=== PATIENT | male | born 1945 | race African-American/Black ===

== ENCOUNTER 2017-01-27 07:26 | Inpatient (IN) ==
[2017-01-27] MEDS ORDERED: ONDANSETRON 4 MG/2 ML VIAL IV STA ×2 (07:46→10:47)
[2017-01-27] MEDS ORDERED: SODIUM CHLORIDE 0.9% 1,000 ML IV STA ×2 (07:46→10:48)
[2017-01-27] MEDS ORDERED: METOCLOPRAMIDE 10 MG/2 ML VIAL IV STA (07:46)
[2017-01-27] MEDS ORDERED: METOCLOPRAMIDE 10 MG/2 ML VIAL ONE (08:29)
[2017-01-27] MEDS ORDERED: ONDANSETRON 4 MG/2 ML VIAL ONE ×2 (08:29→11:03)
[2017-01-27 09:26] LABS: Basophils % 0.2 % (0.0-0.8); Hematocrit 39.3 VOL% (42.0-52.0); Hemoglobin 13.4 GM/DL (14.0-18.0); Immature Granulocytes % 0.4 %; Immature Granulocytes Absolute 0.05 #; Lymphocytes # 0.3 10*3/uL (1.4-4.0); Mean Corpuscular HGB Conc 34.1 GM/DL (32-36); Mean Corpuscular Hemoglobin 31 PG (27-34); Mean Corpuscular Volume 90.8 FL (87-102); Mean Platelet Volume 13.2 FL (9.6-12.0); Monocytes # 0.5 10*3/uL (0.11-0.8); Monocytes % 3.7 % (1.7-12.7); NRBC # 0.02 10*3/uL; Neutrophils # 11.7 10*3/uL (1.4-7.4); Neutrophils % 93.7 % (38.7-73.9); Platelet Count 215 T/CUMM (130-400); Red Blood Count 4.33 MC/CUMM (3.8-5.5); Red Cell Distribution Width 17.2 % (9.3-17.3); White Blood Count 12.5 T/CUMM (4-12)
[2017-01-27 09:34] LABS: PT Patient Result 10.7 SECS; Partial Thromboplastin Time 23.3 SECS (0-40)
[2017-01-27 09:56] LABS: Band Neutrophils 2 % (0-10); Giant Platelets Few; Hypochromasia 1+; Lymphocytes 1 % (20-55); Ovalocytes Slight; Platelet Estimate Adequate; Segmented Neutrophils 94 % (50-85); Total Cells Counted 100
[2017-01-27 09:59] LABS: Albumin 3.9 G/DL (3.4-5.0); Bilirubin,Total 0.6 MG/DL (0.2-1.0); Calcium 8.9 MG/DL (8.5-10.1); Osmolality,Calculated 286.8 MOS/KG (273-304); Potassium 3.4 MMOL/L (3.5-5.1); Total Protein 7.6 G/DL (6.4-8.3)
[2017-01-27] MEDS ORDERED: HYDROmorphone 2 MG/1 ML VIAL IV STA (10:47)
[2017-01-27] MEDS ORDERED: hydrALAZINE 20 MG/1 ML VIAL IV STA (10:48)
[2017-01-27] MEDS ORDERED: HYDROmorphone 2 MG/1 ML VIAL ONE (11:03)
[2017-01-27 11:43] LABS: Apearance,Urine Slightly Hazy (Clear); Bilirubin,Urine Negative (Negative); Blood, Urine Negative (Negative); Glucose,Urine (UA) 150 mg/dL (Negative); Hyaline Casts,Urine 2 /LPF (0-3); Ketones,Urine 5 mg/dL (Negative); Mucus,Urine Occasional /LPF (Occasional); Nitrite,Urine Negative (Negative); Protein,Urine Negative; RBC,Urine <1 /HPF (0-4); Squamous Epithelial Cell,Urine Occasional /HPF (0-10); Urine Color Yellow (Yellow); Urine Specific Gravity 1.029 (1.001-1.035); Urine Urobilinogen < 2.0 EU/DL (0.2-1.0); WBC,Urine <1 /HPF (0-6)
[2017-01-27] MEDS ORDERED: BENZOCAINE/BUTAMBEN/TETRACAINE SPRAY 20 GM CAN TOP ONE (12:32)
[2017-01-27] MEDS ORDERED: GLUCAGON 1 MG VIAL IM PRN (15:56)
[2017-01-27] MEDS ORDERED: ONDANSETRON 4 MG/2 ML VIAL IV PRN (15:56)
[2017-01-27] MEDS ORDERED: DEXTROSE 50% 25 GM/50 ML VIAL IV PRN (15:56)
[2017-01-27] MEDS ORDERED: PROMETHAZINE 25 MG/1 ML VIAL IM PRN (15:56)
[2017-01-27] MEDS: PROPOFOL 1,000 MG/100 ML BOTTLE IV SCH (16:15)
[2017-01-27 16:17] LABS: ABG Base Excess -4.1 MMOL/L (-2.5-2.5); ABG HCO3 21.2 MMOL/L (20-26); ABG Oxygen Saturation 99.3 % (95-100); ABG PCO2 39.3 MM HG (35-48); ABG PH 7.349 (7.35-7.45); ABG TCO2 22.4 MMOL/L (23-27)
[2017-01-27 16:18] LABS: ABG PO2 565.8 MM HG (80-95)
[2017-01-27 16:19] LABS: Basophils % 0.1 % (0.0-0.8); Hematocrit 32.9 VOL% (42.0-52.0); Hemoglobin 11.3 GM/DL (14.0-18.0); Immature Granulocytes % 0.6 %; Immature Granulocytes Absolute 0.05 #; Lymphocytes # 0.3 10*3/uL (1.4-4.0); Mean Corpuscular HGB Conc 34.3 GM/DL (32-36); Mean Corpuscular Hemoglobin 31 PG (27-34); Mean Corpuscular Volume 90.1 FL (87-102); Mean Platelet Volume 12.8 FL (9.6-12.0); Monocytes # 0.4 10*3/uL (0.11-0.8); Monocytes % 4.9 % (1.7-12.7); NRBC # 0.02 10*3/uL; Neutrophils % 90.4 % (38.7-73.9); Platelet Count 175 T/CUMM (130-400); Red Blood Count 3.65 MC/CUMM (3.8-5.5); Red Cell Distribution Width 17.5 % (9.3-17.3); White Blood Count 7.8 T/CUMM (4-12)
[2017-01-27] MEDS ORDERED: HEPARIN/NACL 0.9% 2 UNITS/ML 500 ML IV ONE ×2 (16:32→16:47)
[2017-01-27 16:36] LABS: Calcium 7.3 MG/DL (8.5-10.1); Osmolality,Calculated 290.3 MOS/KG (273-304); Potassium 3.9 MMOL/L (3.5-5.1)
[2017-01-27] MEDS ORDERED: fentaNYL 100 MCG/2 ML VIAL ONE (16:46)
[2017-01-27] MEDS ORDERED: LACTATED RINGERS 1,000 ML IV ONE ×3 (16:46→20:01)
[2017-01-27] MEDS ORDERED: ROCURONIUM 100 MG/10 ML VIAL IV ONE (16:46)
[2017-01-27] MEDS ORDERED: SUCCINYLCHOLINE 200 MG/10 ML VIAL ONE (16:46)
[2017-01-27] MEDS ORDERED: DESFLURANE 1 UNIT/15 MINUTE INH ONE (16:46)
[2017-01-27] MEDS ORDERED: MIDAZOLAM 2 MG/2 ML VIAL ONE (16:46)
[2017-01-27] MEDS ORDERED: ETOMIDATE 20 MG/10 ML VIAL IV ONE (16:46)
[2017-01-27 17:18] LABS: Lymphocytes 3 % (20-55); Platelet Estimate Adequate; Polychromasia Slight; Segmented Neutrophils 93 % (50-85); Total Cells Counted 100
[2017-01-27] MEDS: PANTOPRAZOLE 40 MG VIAL IV SCH (17:34)
[2017-01-27] MEDS: HYDROmorphone 2 MG/1 ML VIAL IV PRN ×2 (18:11→20:35)
[2017-01-27] MEDS: LACTATED RINGERS 1,000 ML IV SCH ×3 (18:18→23:30)
[2017-01-27] MEDS ORDERED: PHENYLEPHRINE DRIP 40 MG/250 ML PREMIX IV ONE (18:22)
[2017-01-27] MEDS: INSULIN REGULAR 100 UNIT/ML SUBCUT SCH (18:40)
[2017-01-27] MEDS: PHENYLEPHRINE DRIP 40 MG/250 ML PREMIX IV SCH (19:10)
[2017-01-27 22:05] LABS: Hematocrit 28.6 VOL% (42.0-52.0)
[2017-01-27] MEDS: BRIMONIDINE 0.1% OPH SOLN 5 ML BOTTLE BOTH EYES SCH (23:05)
[2017-01-28] MEDS: INSULIN REGULAR 100 UNIT/ML SUBCUT SCH ×4 (00:43→17:54)
[2017-01-28] MEDS: PROPOFOL 1,000 MG/100 ML BOTTLE IV SCH ×5 (02:19→22:12)
[2017-01-28] MEDS: PHENYLEPHRINE DRIP 40 MG/250 ML PREMIX IV SCH ×4 (02:22→17:54)
[2017-01-28] MEDS: LACTATED RINGERS 1,000 ML IV SCH ×6 (03:35→20:31)
[2017-01-28 04:28] LABS: ABG Base Excess 0.7 MMOL/L (-2.5-2.5); ABG HCO3 24.8 MMOL/L (20-26); ABG Oxygen Saturation 98.9 % (95-100); ABG PH 7.433 (7.35-7.45); ABG PO2 198.2 MM HG (80-95)
[2017-01-28 04:41] LABS: Basophils % 0.1 % (0.0-0.8); Eosinophils % 0.2 % (0.00-10.9); Hematocrit 27.5 VOL% (42.0-52.0); Hemoglobin 9.6 GM/DL (14.0-18.0); Immature Granulocytes % 0.7 %; Immature Granulocytes Absolute 0.06 #; Lymphocytes # 0.7 10*3/uL (1.4-4.0); Lymphocytes % 8.7 % (21.2-54.2); Mean Corpuscular HGB Conc 34.9 GM/DL (32-36); Mean Corpuscular Hemoglobin 31 PG (27-34); Mean Corpuscular Volume 88.7 FL (87-102); Mean Platelet Volume 11.7 FL (9.6-12.0); Monocytes # 0.4 10*3/uL (0.11-0.8); Monocytes % 5.2 % (1.7-12.7); Neutrophils # 7.2 10*3/uL (1.4-7.4); Neutrophils % 85.1 % (38.7-73.9); Platelet Count 142 T/CUMM (130-400); Red Cell Distribution Width 17.7 % (9.3-17.3); White Blood Count 8.5 T/CUMM (4-12)
[2017-01-28 04:48] LABS: Lactic Acid 0.8 MMOL/L (0.4-2.0)
[2017-01-28 05:02] LABS: Calcium 7.7 MG/DL (8.5-10.1); Potassium 3.7 MMOL/L (3.5-5.1)
[2017-01-28] MEDS ORDERED: ROCURONIUM 100 MG/10 ML VIAL IV ONE (08:32)
[2017-01-28] MEDS ORDERED: azaTHIOprine 50 MG TABLET PO SCH (09:00)
[2017-01-28] MEDS ORDERED: INFLUENZA VIRUS VACCINE 0.5 ML SYRINGE IM ONE (09:16)
[2017-01-28] MEDS: PANTOPRAZOLE 40 MG VIAL IV SCH (09:46)
[2017-01-28] MEDS: ALLOPURINOL 300 MG TABLET PO SCH (09:52)
[2017-01-28] MEDS ORDERED: LACTATED RINGERS 1,000 ML IV ONE ×2 (11:11→13:07)
[2017-01-28] MEDS ORDERED: ALBUMIN 5% 25 GM in PREMIX 1 EACH IV ONE ×2 (13:08→18:08)
[2017-01-28 13:19] LABS: Hematocrit 23.4 VOL% (42.0-52.0); Hemoglobin 8.3 GM/DL (14.0-18.0)
[2017-01-28] MEDS: HYDROmorphone 2 MG/1 ML VIAL IV PRN (14:04)
[2017-01-28] MEDS ORDERED: POTASSIUM CHLORIDE RIDER 10 MEQ in PREMIX 1 EACH IV PRN (15:18)
[2017-01-28] MEDS: BRIMONIDINE 0.1% OPH SOLN 5 ML BOTTLE BOTH EYES SCH (16:45)
[2017-01-28] MEDS: POTASSIUM CHLORIDE RIDER 20 MEQ in PREMIX 1 EACH IV PRN (17:28)
[2017-01-28 19:47] LABS: Hematocrit 19.3 VOL% (42.0-52.0); Hemoglobin 6.5 GM/DL (14.0-18.0)
[2017-01-28] MEDS ORDERED: SODIUM CHLORIDE 0.9% 250 ML IV PRN (20:06)
[2017-01-29] MEDS: HYDROmorphone 2 MG/1 ML VIAL IV PRN ×3 (00:02→21:01)
[2017-01-29] MEDS: INSULIN REGULAR 100 UNIT/ML SUBCUT SCH ×4 (01:02→18:00)
[2017-01-29] MEDS: LACTATED RINGERS 1,000 ML IV SCH ×4 (01:03→09:14)
[2017-01-29] MEDS: ALPHAGAN 0.1% BOTH EYES SCH ×3 (01:04→20:59)
[2017-01-29 04:19] LABS: ABG Base Excess -0.8 MMOL/L (-2.5-2.5); ABG HCO3 23.8 MMOL/L (20-26); ABG Oxygen Saturation 99.9 % (95-100); ABG PCO2 38.5 MM HG (35-48); ABG TCO2 22.3 MMOL/L (23-27); Basophils % 0.1 % (0.0-0.8); Eosinophils % 0.4 % (0.00-10.9); Hematocrit 23.8 VOL% (42.0-52.0); Hemoglobin 8.4 GM/DL (14.0-18.0); Immature Granulocytes % 0.6 %; Immature Granulocytes Absolute 0.04 #; Lymphocytes # 0.4 10*3/uL (1.4-4.0); Lymphocytes % 5.7 % (21.2-54.2); Mean Corpuscular HGB Conc 35.3 GM/DL (32-36); Mean Corpuscular Hemoglobin 30 PG (27-34); Mean Corpuscular Volume 85.9 FL (87-102); Mean Platelet Volume 12.7 FL (9.6-12.0); Monocytes # 0.3 10*3/uL (0.11-0.8); Monocytes % 4.3 % (1.7-12.7); Neutrophils % 88.9 % (38.7-73.9); Red Blood Count 2.77 MC/CUMM (3.8-5.5); Red Cell Distribution Width 17.7 % (9.3-17.3); White Blood Count 6.7 T/CUMM (4-12)
[2017-01-29 04:26] LABS: Platelet Count 77 T/CUMM (130-400)
[2017-01-29 04:41] LABS: Calcium 7.2 MG/DL (8.5-10.1); Potassium 3.5 MMOL/L (3.5-5.1)
[2017-01-29] MEDS: PROPOFOL 1,000 MG/100 ML BOTTLE IV SCH (05:01)
[2017-01-29 05:18] LABS: Giant Platelets Few; Hypochromasia 1+; Microcytosis Slight; Ovalocytes Slight; Platelet Estimate Decreased
[2017-01-29] MEDS ORDERED: MAGNESIUM SULF RIDER 4 GM in PREMIX 1 EACH IV PRN (06:28)
[2017-01-29 06:40] LABS: ABG Base Excess -0.8 MMOL/L (-2.5-2.5); ABG Oxygen Saturation 98.6 % (95-100); ABG PCO2 40.1 MM HG (35-48); ABG PH 7.395 (7.35-7.45); ABG PO2 189.3 MM HG (80-95); ABG TCO2 25.2 MMOL/L (23-27)
[2017-01-29] MEDS: MAGNESIUM SULF RIDER 2 GM in PREMIX 1 EACH IV PRN ×2 (06:44→09:13)
[2017-01-29] MEDS ORDERED: SODIUM CHLORIDE 0.9% 250 ML IV PRN (08:47)
[2017-01-29] MEDS ORDERED: FUROSEMIDE 40 MG/4 ML VIAL IV ONE (08:54)
[2017-01-29] MEDS: ALLOPURINOL 300 MG TABLET PO SCH (09:11)
[2017-01-29] MEDS: PANTOPRAZOLE 40 MG VIAL IV SCH (09:13)
[2017-01-29] MEDS: POTASSIUM CHLORIDE RIDER 20 MEQ in PREMIX 1 EACH IV PRN (09:14)
[2017-01-29 10:16] LABS: ABG HCO3 22.7 MMOL/L (20-26); ABG Oxygen Saturation 99.1 % (95-100); ABG PCO2 38.7 MM HG (35-48); ABG PH 7.379 (7.35-7.45); ABG TCO2 21.2 MMOL/L (23-27)
[2017-01-29] MEDS ORDERED: cloNIDine 0.1 MG TABLET PO PRN (11:26)
[2017-01-29] MEDS: DEXT 5% NACL 0.45% KCL 40 MEQ 40 MEQ/1,000 ML BAG IV SCH ×2 (13:41→22:19)
[2017-01-29 17:41] LABS: Hematocrit 32.1 VOL% (42.0-52.0); Hemoglobin 11.1 GM/DL (14.0-18.0)
[2017-01-29 23:07] LABS: Hematocrit 28.8 VOL% (42.0-52.0)
[2017-01-30] MEDS: DEXT 5% NACL 0.45% KCL 40 MEQ 40 MEQ/1,000 ML BAG IV SCH ×3 (00:18→20:39)
[2017-01-30] MEDS: INSULIN REGULAR 100 UNIT/ML SUBCUT SCH ×4 (00:20→18:47)
[2017-01-30 06:36] LABS: Eosinophils # 0.1 10*3/uL (0.0-0.87); Eosinophils % 1.2 % (0.00-10.9); Hematocrit 29.3 VOL% (42.0-52.0); Hemoglobin 10.1 GM/DL (14.0-18.0); Immature Granulocytes % 0.7 %; Immature Granulocytes Absolute 0.05 #; Lymphocytes # 0.3 10*3/uL (1.4-4.0); Lymphocytes % 4.2 % (21.2-54.2); Mean Corpuscular HGB Conc 34.5 GM/DL (32-36); Mean Corpuscular Hemoglobin 30 PG (27-34); Mean Platelet Volume 12.5 FL (9.6-12.0); Monocytes # 0.3 10*3/uL (0.11-0.8); Monocytes % 4.1 % (1.7-12.7); Neutrophils # 6.6 10*3/uL (1.4-7.4); Neutrophils % 89.8 % (38.7-73.9); Platelet Count 83 T/CUMM (130-400); Red Blood Count 3.33 MC/CUMM (3.8-5.5); Red Cell Distribution Width 17.1 % (9.3-17.3); White Blood Count 7.4 T/CUMM (4-12)
[2017-01-30 06:54] LABS: PT Patient Result 10.7 SECS; Partial Thromboplastin Time 31.9 SECS (0-40)
[2017-01-30 07:03] LABS: Calcium 7.5 MG/DL (8.5-10.1); Magnesium 1.6 MG/DL (1.8-2.4); Osmolality,Calculated 278.3 MOS/KG (273-304); Potassium 3.7 MMOL/L (3.5-5.1)
[2017-01-30 07:04] LABS: Giant Platelets Few; Hypochromasia 1+; Ovalocytes Slight; Platelet Estimate Decreased
[2017-01-30 07:05] LABS: Microcytosis Slight
[2017-01-30] MEDS: PANTOPRAZOLE 40 MG VIAL IV SCH (09:24)
[2017-01-30] MEDS: ALLOPURINOL 300 MG TABLET PO SCH (09:30)
[2017-01-30] MEDS: ALPHAGAN 0.1% BOTH EYES SCH ×2 (09:59→20:29)
[2017-01-30 10:57] LABS: Hematocrit 30.4 VOL% (42.0-52.0); Hemoglobin 10.6 GM/DL (14.0-18.0)
[2017-01-30] MEDS ORDERED: ACETAMINOPHEN 325 MG TABLET PO PRN (15:18)
[2017-01-30] MEDS: HYDROmorphone 2 MG/1 ML VIAL IV PRN ×2 (16:38→20:35)
[2017-01-31] MEDS: INSULIN REGULAR 100 UNIT/ML SUBCUT SCH ×4 (00:10→17:56)
[2017-01-31] MEDS: DEXT 5% NACL 0.45% KCL 40 MEQ 40 MEQ/1,000 ML BAG IV SCH ×2 (05:32→17:22)
[2017-01-31 07:35] LABS: Basophils % 0.1 % (0.0-0.8); Eosinophils % 0.5 % (0.00-10.9); Hematocrit 31.4 VOL% (42.0-52.0); Hemoglobin 10.8 GM/DL (14.0-18.0); Immature Granulocytes % 0.5 %; Immature Granulocytes Absolute 0.04 #; Lymphocytes # 0.2 10*3/uL (1.4-4.0); Lymphocytes % 2.2 % (21.2-54.2); Mean Corpuscular HGB Conc 34.4 GM/DL (32-36); Mean Corpuscular Hemoglobin 31 PG (27-34); Mean Corpuscular Volume 89.7 FL (87-102); Mean Platelet Volume 11.8 FL (9.6-12.0); Monocytes # 0.4 10*3/uL (0.11-0.8); Monocytes % 4.8 % (1.7-12.7); Neutrophils # 6.7 10*3/uL (1.4-7.4); Neutrophils % 91.9 % (38.7-73.9); Platelet Count 129 T/CUMM (130-400); Red Cell Distribution Width 16.5 % (9.3-17.3); White Blood Count 7.3 T/CUMM (4-12)
[2017-01-31 08:04] LABS: Calcium 7.7 MG/DL (8.5-10.1); Osmolality,Calculated 280.3 MOS/KG (273-304); Potassium 4.3 MMOL/L (3.5-5.1)
[2017-01-31 08:05] LABS: Hypochromasia 1+
[2017-01-31] MEDS ORDERED: ALBUTEROL/IPRATROPIUM 3 ML NEB RESP TX PRN (09:13)
[2017-01-31] MEDS: PANTOPRAZOLE 40 MG VIAL IV SCH (09:18)
[2017-01-31] MEDS: ALLOPURINOL 300 MG TABLET PO SCH (09:37)
[2017-01-31] MEDS: HYDROmorphone 2 MG/1 ML VIAL IV PRN (09:37)
[2017-01-31] MEDS: ALPHAGAN 0.1% BOTH EYES SCH ×2 (09:45→21:17)
[2017-01-31] MEDS: LEVOFLOXACIN INJ 750 MG in PREMIX 1 EACH IV SCH (10:31)
[2017-01-31] MEDS: ENOXAPARIN 40 MG/0.4 ML SYRINGE SUBCUT SCH (10:32)
[2017-01-31] MEDS: ALBUTEROL/IPRATROPIUM 3 ML NEB RESP TX SCH ×2 (13:59→19:36)
[2017-01-31] MEDS: NYSTATIN 500,000 UNIT/5 ML UDCUP SWISH/SWAL SCH ×3 (14:02→21:16)
[2017-02-01] MEDS: INSULIN REGULAR 100 UNIT/ML SUBCUT SCH ×4 (00:21→19:10)
[2017-02-01] MEDS: ALBUTEROL/IPRATROPIUM 3 ML NEB RESP TX SCH ×4 (00:39→19:28)
[2017-02-01] MEDS: DEXT 5% NACL 0.45% KCL 40 MEQ 40 MEQ/1,000 ML BAG IV SCH ×2 (03:21)
[2017-02-01 05:00] LABS: Basophils % 0.2 % (0.0-0.8); Eosinophils # 0.1 10*3/uL (0.0-0.87); Eosinophils % 1.7 % (0.00-10.9); Hematocrit 28.7 VOL% (42.0-52.0); Hemoglobin 9.5 GM/DL (14.0-18.0); Immature Granulocytes % 0.7 %; Immature Granulocytes Absolute 0.04 #; Lymphocytes # 0.3 10*3/uL (1.4-4.0); Lymphocytes % 5.4 % (21.2-54.2); Mean Corpuscular HGB Conc 33.1 GM/DL (32-36); Mean Corpuscular Hemoglobin 30 PG (27-34); Mean Corpuscular Volume 90.8 FL (87-102); Mean Platelet Volume 11.3 FL (9.6-12.0); Monocytes # 0.4 10*3/uL (0.11-0.8); Monocytes % 6.9 % (1.7-12.7); Neutrophils # 4.9 10*3/uL (1.4-7.4); Neutrophils % 85.1 % (38.7-73.9); Platelet Count 126 T/CUMM (130-400); Red Blood Count 3.16 MC/CUMM (3.8-5.5); Red Cell Distribution Width 16.1 % (9.3-17.3); White Blood Count 5.8 T/CUMM (4-12)
[2017-02-01] MEDS: ALLOPURINOL 300 MG TABLET PO SCH (09:41)
[2017-02-01] MEDS: NYSTATIN 500,000 UNIT/5 ML UDCUP SWISH/SWAL SCH ×4 (09:42→21:40)
[2017-02-01] MEDS: PANTOPRAZOLE 40 MG VIAL IV SCH (09:44)
[2017-02-01] MEDS: ENOXAPARIN 40 MG/0.4 ML SYRINGE SUBCUT SCH (09:54)
[2017-02-01] MEDS: LEVOFLOXACIN INJ 750 MG in PREMIX 1 EACH IV SCH (09:55)
[2017-02-01] MEDS: ALPHAGAN 0.1% BOTH EYES SCH ×2 (10:01→21:41)
[2017-02-01] MEDS: HYDROmorphone 2 MG/1 ML VIAL IV PRN (21:35)
[2017-02-02] MEDS: ALBUTEROL/IPRATROPIUM 3 ML NEB RESP TX SCH ×2 (00:22→06:52)
[2017-02-02] MEDS: INSULIN REGULAR 100 UNIT/ML SUBCUT SCH ×2 (01:12→07:04)
[2017-02-02 05:30] LABS: Basophils % 0.2 % (0.0-0.8); Eosinophils # 0.1 10*3/uL (0.0-0.87); Eosinophils % 2.8 % (0.00-10.9); Hematocrit 28.2 VOL% (42.0-52.0); Hemoglobin 9.5 GM/DL (14.0-18.0); Immature Granulocytes % 0.8 %; Immature Granulocytes Absolute 0.04 #; Lymphocytes # 0.3 10*3/uL (1.4-4.0); Mean Corpuscular HGB Conc 33.7 GM/DL (32-36); Mean Corpuscular Hemoglobin 30 PG (27-34); Mean Corpuscular Volume 90.4 FL (87-102); Mean Platelet Volume 11.7 FL (9.6-12.0); Monocytes # 0.3 10*3/uL (0.11-0.8); Monocytes % 6.5 % (1.7-12.7); Neutrophils # 4.2 10*3/uL (1.4-7.4); Neutrophils % 83.7 % (38.7-73.9); Platelet Count 162 T/CUMM (130-400); Red Blood Count 3.12 MC/CUMM (3.8-5.5); Red Cell Distribution Width 16.2 % (9.3-17.3)
[2017-02-02 05:56] LABS: Calcium 7.7 MG/DL (8.5-10.1); Magnesium 1.7 MG/DL (1.8-2.4)
[2017-02-02 06:54] VITALS: BP 152/90
[2017-02-02] MEDS ORDERED: INFLUENZA VIRUS VACCINE 0.5 ML SYRINGE IM ONE (09:00)
[2017-02-02] MEDS: PANTOPRAZOLE 40 MG VIAL IV SCH (10:08)
[2017-02-02] MEDS: ALLOPURINOL 300 MG TABLET PO SCH (10:08)
[2017-02-02] MEDS: ENOXAPARIN 40 MG/0.4 ML SYRINGE SUBCUT SCH (10:08)
[2017-02-02] MEDS: NYSTATIN 500,000 UNIT/5 ML UDCUP SWISH/SWAL SCH (10:11)
[2017-02-02] MEDS: ALPHAGAN 0.1% BOTH EYES SCH (10:12)
[2017-02-02] MEDS: LEVOFLOXACIN INJ 750 MG in PREMIX 1 EACH IV SCH (10:46)
== END 2017-02-02 11:43 | disposition swing bed (61) | DRG 329 ==
LOC: EDBD → EDUNIT# → N.ED 07:26 → N.ICU 14:14 → N.EDINP 15:47 → N.3E 01-29 15:59
PROVIDERS: ADMIT Surgery; ATTEND Surgery

== ENCOUNTER 2017-02-05 14:27 | Inpatient (IN) ==
[2017-02-05] MEDS ORDERED: ONDANSETRON 4 MG/2 ML VIAL IV PRN (15:38)
[2017-02-05] MEDS ORDERED: ACETAMINOPHEN 325 MG TABLET PO PRN (15:38)
[2017-02-05] MEDS ORDERED: HEPARIN 5,000 UNIT/1 ML VIAL IV ONE (15:38)
[2017-02-05] MEDS ORDERED: HEPARIN DRIP 25,000 UNITS/500 ML PREMIX IV SCH (16:00)
[2017-02-05] MEDS: LACTATED RINGERS 1,000 ML IV SCH ×2 (16:00→19:20)
[2017-02-05] MEDS: LEVOFLOXACIN INJ 750 MG in PREMIX 1 EACH IV SCH (16:09)
[2017-02-05] MEDS ORDERED: LACTATED RINGERS 1,000 ML IV ONE ×2 (16:10→17:07)
[2017-02-05] MEDS ORDERED: HEPARIN/NACL 0.9% 2 UNITS/ML 500 ML IV ONE (16:51)
[2017-02-05 16:55] LABS: ABG Base Excess 3.9 MMOL/L (-2.5-2.5); ABG HCO3 27.5 MMOL/L (20-26); ABG Oxygen Saturation 96.2 % (95-100); ABG PCO2 37.3 MM HG (35-48); ABG PH 7.485 (7.35-7.45); ABG PO2 77.4 MM HG (80-95); ABG TCO2 28.6 MMOL/L (23-27)
[2017-02-05 17:35] LABS: Basophils % 0.1 % (0.0-0.8); Eosinophils % 0.1 % (0.00-10.9); Hematocrit 28.3 VOL% (42.0-52.0); Hemoglobin 9.4 GM/DL (14.0-18.0); Lymphocytes # 0.3 10*3/uL (1.4-4.0); Lymphocytes % 3.2 % (21.2-54.2); Mean Corpuscular HGB Conc 33.2 GM/DL (32-36); Mean Corpuscular Hemoglobin 30 PG (27-34); Monocytes # 0.9 10*3/uL (0.11-0.8); Monocytes % 8.6 % (1.7-12.7); Neutrophils # 8.6 10*3/uL (1.4-7.4); Platelet Count 292 T/CUMM (130-400); Red Blood Count 3.11 MC/CUMM (3.8-5.5); Red Cell Distribution Width 15.7 % (9.3-17.3); White Blood Count 9.9 T/CUMM (4-12)
[2017-02-05 17:51] LABS: Albumin 2.3 G/DL (3.4-5.0); Bilirubin,Total 0.5 MG/DL (0.2-1.0); Osmolality,Calculated 277.5 MOS/KG (273-304); Potassium 3.6 MMOL/L (3.5-5.1); Total Protein 5.7 G/DL (6.4-8.3)
[2017-02-05 18:15] LABS: Band Neutrophils 1 % (0-10); Lymphocytes 7 % (20-55); Segmented Neutrophils 86 % (50-85); Total Cells Counted 100
[2017-02-05 18:16] LABS: Platelet Estimate Normal
[2017-02-05] MEDS ORDERED: MAGNESIUM SULF RIDER 4 GM in PREMIX 1 EACH IV PRN (18:40)
[2017-02-05] MEDS: PANTOPRAZOLE 40 MG VIAL IV SCH (19:17)
[2017-02-05] MEDS: MAGNESIUM SULF RIDER 2 GM in PREMIX 1 EACH IV PRN (20:25)
[2017-02-06] MEDS: LACTATED RINGERS 1,000 ML IV SCH ×3 (03:30→18:31)
[2017-02-06 07:26] LABS: Eosinophils # 0.1 10*3/uL (0.0-0.87); Eosinophils % 0.6 % (0.00-10.9); Hematocrit 25.2 VOL% (42.0-52.0); Hemoglobin 8.7 GM/DL (14.0-18.0); Immature Granulocytes % 1.4 %; Immature Granulocytes Absolute 0.13 #; Lymphocytes # 0.3 10*3/uL (1.4-4.0); Lymphocytes % 3.5 % (21.2-54.2); Mean Corpuscular HGB Conc 34.5 GM/DL (32-36); Mean Corpuscular Hemoglobin 31 PG (27-34); Mean Corpuscular Volume 89.4 FL (87-102); Mean Platelet Volume 10.5 FL (9.6-12.0); Monocytes # 0.6 10*3/uL (0.11-0.8); Monocytes % 6.4 % (1.7-12.7); Neutrophils % 88.1 % (38.7-73.9); Platelet Count 273 T/CUMM (130-400); Red Blood Count 2.82 MC/CUMM (3.8-5.5); Red Cell Distribution Width 15.4 % (9.3-17.3); White Blood Count 9.1 T/CUMM (4-12)
[2017-02-06 07:50] LABS: Eosinophils 2 % (0-10); Giant Platelets Few; Hypochromasia 1+; Lymphocytes 3 % (20-55); Ovalocytes Slight; Platelet Estimate Adequate; Segmented Neutrophils 89 % (50-85); Total Cells Counted 100
[2017-02-06 08:01] LABS: Bilirubin,Total 0.6 MG/DL (0.2-1.0); Osmolality,Calculated 276.4 MOS/KG (273-304); Potassium 3.4 MMOL/L (3.5-5.1); Total Protein 5.1 G/DL (6.4-8.3)
[2017-02-06] MEDS: ENOXAPARIN 40 MG/0.4 ML SYRINGE SUBCUT SCH (08:25)
[2017-02-06] MEDS: PANTOPRAZOLE 40 MG VIAL IV SCH (08:26)
[2017-02-06] MEDS ORDERED: GLUCAGON 1 MG VIAL IM PRN (08:54)
[2017-02-06] MEDS ORDERED: DEXTROSE 50% 25 GM/50 ML VIAL IV PRN (08:54)
[2017-02-06] MEDS ORDERED: INSULIN LISPRO 100 UNIT/ML SUBCUT SCH ×2 (09:07→10:00)
[2017-02-06] MEDS: INSULIN LISPRO 100 UNIT/ML SUBCUT SCH ×3 (09:48→18:31)
[2017-02-06] MEDS: FAT EMULSION 20% 250 ML IV SCH (14:19)
[2017-02-06] MEDS: LEVOFLOXACIN INJ 750 MG in PREMIX 1 EACH IV SCH (16:38)
[2017-02-06] MEDS ORDERED: TRACE ELEMENTS (5) 1 ML, MULTIVITAMIN INJ 10 ML in AMINO ACIDS/DEXT/LYTES 5-15% 2,000 ML IV SCH (17:00)
[2017-02-06] MEDS ORDERED: DEXTROSE 10% 1,000 ML IV PRN (17:00)
[2017-02-07] MEDS: INSULIN LISPRO 100 UNIT/ML SUBCUT SCH ×6 (00:03→20:25)
[2017-02-07] MEDS: HYDROmorphone 2 MG/1 ML VIAL IV PRN ×2 (03:44→20:21)
[2017-02-07 03:47] LABS: Eosinophils # 0.1 10*3/uL (0.0-0.87); Eosinophils % 1.1 % (0.00-10.9); Hemoglobin 9.2 GM/DL (14.0-18.0); Immature Granulocytes % 0.8 %; Immature Granulocytes Absolute 0.07 #; Lymphocytes # 0.3 10*3/uL (1.4-4.0); Lymphocytes % 3.5 % (21.2-54.2); Mean Corpuscular HGB Conc 34.1 GM/DL (32-36); Mean Corpuscular Hemoglobin 30 PG (27-34); Mean Corpuscular Volume 88.5 FL (87-102); Mean Platelet Volume 10.4 FL (9.6-12.0); Monocytes # 0.4 10*3/uL (0.11-0.8); Neutrophils # 7.5 10*3/uL (1.4-7.4); Neutrophils % 89.6 % (38.7-73.9); Platelet Count 339 T/CUMM (130-400); Red Blood Count 3.05 MC/CUMM (3.8-5.5); Red Cell Distribution Width 15.5 % (9.3-17.3); White Blood Count 8.3 T/CUMM (4-12)
[2017-02-07 04:10] LABS: Calcium 7.8 MG/DL (8.5-10.1); Magnesium 1.5 MG/DL (1.8-2.4); Osmolality,Calculated 274.5 MOS/KG (273-304); Potassium 3.2 MMOL/L (3.5-5.1)
[2017-02-07] MEDS: MAGNESIUM SULF RIDER 2 GM in PREMIX 1 EACH IV PRN (04:15)
[2017-02-07 05:02] LABS: Eosinophils 2 % (0-10); Giant Platelets Few; Hypochromasia 1+; Lymphocytes 4 % (20-55); Platelet Estimate Adequate; Segmented Neutrophils 89 % (50-85); Total Cells Counted 100
[2017-02-07 05:03] LABS: Microcytosis Slight; Ovalocytes Slight
[2017-02-07] MEDS ORDERED: POTASSIUM CHLORIDE RIDER 10 MEQ in PREMIX 1 EACH IV PRN (06:44)
[2017-02-07] MEDS: POTASSIUM CHLORIDE RIDER 20 MEQ in PREMIX 1 EACH IV PRN ×2 (07:50→09:40)
[2017-02-07 07:51] LABS: Apearance,Urine Slightly Hazy (Clear); Bilirubin,Urine Negative (Negative); Blood, Urine Moderate mg/dL (Negative); Glucose,Urine (UA) Negative (Negative); Hyaline Casts,Urine 1 /LPF (0-3); Ketones,Urine Negative (Negative); Mucus,Urine Occasional /LPF (Occasional); Nitrite,Urine Negative (Negative); Protein,Urine Negative; RBC,Urine 44 /HPF (0-4); Urine Color Yellow (Yellow); Urine Specific Gravity 1.011 (1.001-1.035); Urine Urobilinogen < 2.0 EU/DL (0.2-1.0); WBC,Urine 35 /HPF (0-6)
[2017-02-07 07:55] LABS: Phosphorous 3.6 MG/DL (2.5-4.9); Prealbumin 5.2 MG/DL (20-40)
[2017-02-07] MEDS: PANTOPRAZOLE 40 MG VIAL IV SCH (09:33)
[2017-02-07] MEDS: ENOXAPARIN 40 MG/0.4 ML SYRINGE SUBCUT SCH (09:41)
[2017-02-07] MEDS: BENZONATATE 100 MG CAPSULE PO SCH ×2 (16:08→20:24)
[2017-02-07] MEDS: FAT EMULSION 20% 250 ML IV SCH (16:09)
[2017-02-07] MEDS: LEVOFLOXACIN INJ 750 MG in PREMIX 1 EACH IV SCH (16:26)
[2017-02-07] MEDS ORDERED: TRACE ELEMENTS (5) 1 ML, MULTIVITAMIN INJ 10 ML in AMINO ACIDS/DEXT/LYTES 5-15% 2,000 ML IV SCH (17:00)
[2017-02-07] MEDS ORDERED: TRACE ELEMENTS (5) 1 ML, MULTIVITAMIN INJ 10 ML, POTASSIUM CHLORIDE INJ 40 MEQ in AMINO... IV SCH (17:00)
[2017-02-08] MEDS: INSULIN LISPRO 100 UNIT/ML SUBCUT SCH ×6 (01:05→20:54)
[2017-02-08 05:13] LABS: Basophils % 0.2 % (0.0-0.8); Eosinophils # 0.1 10*3/uL (0.0-0.87); Eosinophils % 0.9 % (0.00-10.9); Hematocrit 26.5 VOL% (42.0-52.0); Hemoglobin 9.1 GM/DL (14.0-18.0); Immature Granulocytes % 0.8 %; Immature Granulocytes Absolute 0.05 #; Lymphocytes # 0.3 10*3/uL (1.4-4.0); Lymphocytes % 4.6 % (21.2-54.2); Mean Corpuscular HGB Conc 34.3 GM/DL (32-36); Mean Corpuscular Hemoglobin 30 PG (27-34); Mean Corpuscular Volume 88.6 FL (87-102); Mean Platelet Volume 10.3 FL (9.6-12.0); Monocytes # 0.4 10*3/uL (0.11-0.8); Monocytes % 6.5 % (1.7-12.7); Neutrophils # 5.6 10*3/uL (1.4-7.4); Platelet Count 332 T/CUMM (130-400); Red Blood Count 2.99 MC/CUMM (3.8-5.5); Red Cell Distribution Width 15.2 % (9.3-17.3); White Blood Count 6.5 T/CUMM (4-12)
[2017-02-08 05:50] LABS: Lymphocytes 6 % (20-55); Metamyelocytes 1 %; Segmented Neutrophils 87 % (50-85); Total Cells Counted 100
[2017-02-08 05:51] LABS: Hypochromasia 1+; Microcytosis 1+
[2017-02-08 05:52] LABS: Platelet Estimate Normal; Target Cells Slight
[2017-02-08 06:06] LABS: Calcium 7.6 MG/DL (8.5-10.1); Magnesium 1.3 MG/DL (1.8-2.4); Osmolality,Calculated 275.7 MOS/KG (273-304); Potassium 3.9 MMOL/L (3.5-5.1)
[2017-02-08] MEDS ORDERED: ALBUTEROL/IPRATROPIUM 3 ML NEB RESP TX SCH ×2 (08:57→13:00)
[2017-02-08] MEDS: ENOXAPARIN 40 MG/0.4 ML SYRINGE SUBCUT SCH (09:05)
[2017-02-08] MEDS: methylPREDNISolone SOD SUC 40 MG/1 ML VIAL IV SCH ×2 (09:05→17:15)
[2017-02-08] MEDS: FLUCONAZOLE INJ 100 MG in IV BAG 1 EACH IV SCH (09:06)
[2017-02-08] MEDS: PANTOPRAZOLE 40 MG VIAL IV SCH (09:06)
[2017-02-08] MEDS: BENZONATATE 100 MG CAPSULE PO SCH ×3 (09:20→20:54)
[2017-02-08] MEDS: FAT EMULSION 20% 250 ML IV SCH (14:39)
[2017-02-08] MEDS: POTASSIUM CHLORIDE IV SCH (14:43)
[2017-02-08] MEDS: TRACE ELEMENTS IV SCH (14:43)
[2017-02-08] MEDS: MULTIVITAMIN IV SCH (14:43)
[2017-02-08] MEDS: [UNRECOGNIZED DRUG - OTHER] IV SCH (14:43)
[2017-02-08] MEDS: LEVOFLOXACIN INJ 750 MG in PREMIX 1 EACH IV SCH (16:05)
[2017-02-08] MEDS: ALBUTEROL/IPRATROPIUM 3 ML NEB RESP TX SCH (20:02)
[2017-02-08] MEDS: BRIMONIDINE 0.1% OPH SOLN 5 ML BOTTLE BOTH EYES SCH (20:54)
[2017-02-09] MEDS: methylPREDNISolone SOD SUC 40 MG/1 ML VIAL IV SCH (00:31)
[2017-02-09] MEDS: INSULIN LISPRO 100 UNIT/ML SUBCUT SCH ×5 (00:31→21:00)
[2017-02-09] MEDS: ALBUTEROL/IPRATROPIUM 3 ML NEB RESP TX SCH ×4 (01:09→20:05)
[2017-02-09 07:13] LABS: Calcium 8.2 MG/DL (8.5-10.1); Magnesium 2.3 MG/DL (1.8-2.4); Osmolality,Calculated 284.8 MOS/KG (273-304); Potassium 4.8 MMOL/L (3.5-5.1)
[2017-02-09] MEDS: PANTOPRAZOLE 40 MG VIAL IV SCH (08:41)
[2017-02-09] MEDS: BENZONATATE 100 MG CAPSULE PO SCH ×3 (08:41→21:01)
[2017-02-09] MEDS: BRIMONIDINE 0.1% OPH SOLN 5 ML BOTTLE BOTH EYES SCH ×2 (08:41→21:02)
[2017-02-09] MEDS: ENOXAPARIN 40 MG/0.4 ML SYRINGE SUBCUT SCH (08:41)
[2017-02-09] MEDS: FLUCONAZOLE INJ 100 MG in IV BAG 1 EACH IV SCH (09:17)
[2017-02-09] MEDS: [UNRECOGNIZED DRUG - OTHER] IV SCH ×2 (10:02→12:07)
[2017-02-09] MEDS: TRACE ELEMENTS IV SCH ×3 (10:02→16:31)
[2017-02-09] MEDS: POTASSIUM CHLORIDE IV SCH ×2 (10:02→12:07)
[2017-02-09] MEDS: MULTIVITAMIN IV SCH ×3 (10:02→16:31)
[2017-02-09] MEDS: FAT EMULSION 20% 250 ML IV SCH (13:48)
[2017-02-09] MEDS: [UNRECOGNIZED DRUG - OTHER] IV SCH (16:31)
[2017-02-09] MEDS: LEVOFLOXACIN INJ 750 MG in PREMIX 1 EACH IV SCH (16:31)
[2017-02-09] MEDS: INSULIN REGULAR IV SCH (16:31)
[2017-02-10] MEDS: INSULIN LISPRO 100 UNIT/ML SUBCUT SCH ×6 (00:15→20:34)
[2017-02-10] MEDS: ALBUTEROL/IPRATROPIUM 3 ML NEB RESP TX SCH ×4 (00:55→19:50)
[2017-02-10 03:28] LABS: Basophils % 0.2 % (0.0-0.8); Eosinophils % 0.2 % (0.00-10.9); Hematocrit 27.7 VOL% (42.0-52.0); Hemoglobin 9.4 GM/DL (14.0-18.0); Immature Granulocytes % 0.8 %; Immature Granulocytes Absolute 0.05 #; Lymphocytes # 0.4 10*3/uL (1.4-4.0); Lymphocytes % 7.4 % (21.2-54.2); Mean Corpuscular HGB Conc 33.9 GM/DL (32-36); Mean Corpuscular Hemoglobin 30 PG (27-34); Mean Corpuscular Volume 88.8 FL (87-102); Mean Platelet Volume 10.3 FL (9.6-12.0); Monocytes # 0.7 10*3/uL (0.11-0.8); Monocytes % 11.1 % (1.7-12.7); Neutrophils # 4.8 10*3/uL (1.4-7.4); Neutrophils % 80.3 % (38.7-73.9); Platelet Count 400 T/CUMM (130-400); Red Blood Count 3.12 MC/CUMM (3.8-5.5); Red Cell Distribution Width 15.3 % (9.3-17.3)
[2017-02-10 04:02] LABS: Calcium 8.3 MG/DL (8.5-10.1); Osmolality,Calculated 282.5 MOS/KG (273-304); Potassium 4.3 MMOL/L (3.5-5.1)
[2017-02-10] MEDS: FLUCONAZOLE INJ 100 MG in IV BAG 1 EACH IV SCH (09:41)
[2017-02-10] MEDS: BENZONATATE 100 MG CAPSULE PO SCH ×3 (09:41→21:15)
[2017-02-10] MEDS: PANTOPRAZOLE 40 MG VIAL IV SCH (09:42)
[2017-02-10] MEDS: ENOXAPARIN 40 MG/0.4 ML SYRINGE SUBCUT SCH (09:42)
[2017-02-10] MEDS: BRIMONIDINE 0.1% OPH SOLN 5 ML BOTTLE BOTH EYES SCH ×2 (09:43→21:15)
[2017-02-10] MEDS: FAT EMULSION 20% 250 ML IV SCH (13:45)
[2017-02-10] MEDS: TRACE ELEMENTS IV SCH (13:45)
[2017-02-10] MEDS: [UNRECOGNIZED DRUG - OTHER] IV SCH (13:45)
[2017-02-10] MEDS: INSULIN REGULAR IV SCH (13:45)
[2017-02-10] MEDS: MULTIVITAMIN IV SCH (13:45)
[2017-02-10] MEDS: LEVOFLOXACIN INJ 750 MG in PREMIX 1 EACH IV SCH (15:28)
[2017-02-11] MEDS: INSULIN LISPRO 100 UNIT/ML SUBCUT SCH ×6 (00:13→20:57)
[2017-02-11] MEDS: ALBUTEROL/IPRATROPIUM 3 ML NEB RESP TX SCH ×4 (00:29→19:25)
[2017-02-11 05:22] LABS: Basophils % 0.2 % (0.0-0.8); Eosinophils # 0.1 10*3/uL (0.0-0.87); Eosinophils % 1.1 % (0.00-10.9); Hematocrit 27.5 VOL% (42.0-52.0); Hemoglobin 9.4 GM/DL (14.0-18.0); Immature Granulocytes % 1.1 %; Immature Granulocytes Absolute 0.07 #; Lymphocytes # 0.4 10*3/uL (1.4-4.0); Lymphocytes % 6.4 % (21.2-54.2); Mean Corpuscular HGB Conc 34.2 GM/DL (32-36); Mean Corpuscular Hemoglobin 30 PG (27-34); Mean Corpuscular Volume 88.7 FL (87-102); Mean Platelet Volume 10.4 FL (9.6-12.0); Monocytes # 0.8 10*3/uL (0.11-0.8); Monocytes % 12.1 % (1.7-12.7); Neutrophils % 79.1 % (38.7-73.9); Platelet Count 372 T/CUMM (130-400); Red Cell Distribution Width 15.5 % (9.3-17.3); White Blood Count 6.3 T/CUMM (4-12)
[2017-02-11] MEDS: FLUCONAZOLE INJ 100 MG in IV BAG 1 EACH IV SCH (09:53)
[2017-02-11] MEDS: ENOXAPARIN 40 MG/0.4 ML SYRINGE SUBCUT SCH (09:53)
[2017-02-11] MEDS: BENZONATATE 100 MG CAPSULE PO SCH ×3 (09:54→20:57)
[2017-02-11] MEDS: MULTIVITAMIN IV SCH (09:54)
[2017-02-11] MEDS: [UNRECOGNIZED DRUG - OTHER] IV SCH (09:54)
[2017-02-11] MEDS: PANTOPRAZOLE 40 MG VIAL IV SCH (09:54)
[2017-02-11] MEDS: INSULIN REGULAR IV SCH (09:54)
[2017-02-11] MEDS: TRACE ELEMENTS IV SCH (09:54)
[2017-02-11] MEDS: BRIMONIDINE 0.1% OPH SOLN 5 ML BOTTLE BOTH EYES SCH ×2 (10:06→22:34)
[2017-02-11] MEDS: FAT EMULSION 20% 250 ML IV SCH (14:15)
[2017-02-11] MEDS: LEVOFLOXACIN INJ 750 MG in PREMIX 1 EACH IV SCH (15:09)
[2017-02-12] MEDS: ALBUTEROL/IPRATROPIUM 3 ML NEB RESP TX SCH ×4 (00:12→19:27)
[2017-02-12] MEDS: INSULIN LISPRO 100 UNIT/ML SUBCUT SCH ×7 (00:47→23:52)
[2017-02-12 05:42] LABS: Calcium 8.1 MG/DL (8.5-10.1); Osmolality,Calculated 280.7 MOS/KG (273-304); Potassium 4.9 MMOL/L (3.5-5.1)
[2017-02-12 05:48] LABS: Magnesium 1.9 MG/DL (1.8-2.4); Phosphorous 4.5 MG/DL (2.5-4.9); Prealbumin 21.3 MG/DL (20-40)
[2017-02-12] MEDS: INSULIN REGULAR IV SCH (05:54)
[2017-02-12] MEDS: TRACE ELEMENTS IV SCH (05:54)
[2017-02-12] MEDS: MULTIVITAMIN IV SCH (05:54)
[2017-02-12] MEDS: [UNRECOGNIZED DRUG - OTHER] IV SCH (05:54)
[2017-02-12] MEDS: PANTOPRAZOLE 40 MG VIAL IV SCH (08:47)
[2017-02-12] MEDS: ENOXAPARIN 40 MG/0.4 ML SYRINGE SUBCUT SCH (08:48)
[2017-02-12] MEDS: BENZONATATE 100 MG CAPSULE PO SCH ×3 (08:49→21:02)
[2017-02-12] MEDS: BRIMONIDINE 0.1% OPH SOLN 5 ML BOTTLE BOTH EYES SCH ×2 (08:50→21:06)
[2017-02-12] MEDS: FLUCONAZOLE INJ 100 MG in IV BAG 1 EACH IV SCH (09:20)
[2017-02-12] MEDS: FAT EMULSION 20% 250 ML IV SCH (13:35)
[2017-02-12] MEDS: LEVOFLOXACIN INJ 750 MG in PREMIX 1 EACH IV SCH (15:26)
[2017-02-13] MEDS: ALBUTEROL/IPRATROPIUM 3 ML NEB RESP TX SCH ×2 (00:37→07:35)
[2017-02-13] MEDS ORDERED: PANTOPRAZOLE 40 MG TABLET PO SCH (09:00)
[2017-02-13 09:54] LABS: Calcium 8.4 MG/DL (8.5-10.1); Potassium 4.8 MMOL/L (3.5-5.1)
[2017-02-13 10:00] LABS: Basophils % 0.1 % (0.0-0.8); Eosinophils # 0.1 10*3/uL (0.0-0.87); Eosinophils % 0.8 % (0.00-10.9); Hematocrit 28.7 VOL% (42.0-52.0); Hemoglobin 9.7 GM/DL (14.0-18.0); Immature Granulocytes % 2.5 %; Immature Granulocytes Absolute 0.19 #; Lymphocytes # 0.5 10*3/uL (1.4-4.0); Lymphocytes % 6.7 % (21.2-54.2); Mean Corpuscular HGB Conc 33.8 GM/DL (32-36); Mean Corpuscular Hemoglobin 30 PG (27-34); Mean Corpuscular Volume 89.7 FL (87-102); Mean Platelet Volume 10.4 FL (9.6-12.0); Monocytes # 0.8 10*3/uL (0.11-0.8); Monocytes % 11.1 % (1.7-12.7); Neutrophils # 5.9 10*3/uL (1.4-7.4); Neutrophils % 78.8 % (38.7-73.9); Platelet Count 346 T/CUMM (130-400); Red Cell Distribution Width 15.6 % (9.3-17.3); White Blood Count 7.5 T/CUMM (4-12)
[2017-02-13] MEDS: ENOXAPARIN 40 MG/0.4 ML SYRINGE SUBCUT SCH (10:16)
[2017-02-13] MEDS: INSULIN LISPRO 100 UNIT/ML SUBCUT SCH ×2 (10:16→11:15)
[2017-02-13] MEDS: BRIMONIDINE 0.1% OPH SOLN 5 ML BOTTLE BOTH EYES SCH (10:17)
[2017-02-13] MEDS: FLUCONAZOLE INJ 100 MG in IV BAG 1 EACH IV SCH (10:17)
[2017-02-13] MEDS: BENZONATATE 100 MG CAPSULE PO SCH (10:18)
[2017-02-13] MEDS ORDERED: BISACODYL 5 MG TABLET PO PRN (10:19)
[2017-02-13 11:11] LABS: Hypochromasia 2+; Lymphocytes 6 % (20-55); Microcytosis 2+; Platelet Estimate Adequate; Segmented Neutrophils 87 % (50-85); Total Cells Counted 100
[2017-02-13 12:58] VITALS: BP 121/79
== END 2017-02-13 12:55 | disposition hospice, home (50) | DRG 388 ==
LOC: N.ICU 15:34 → N.4E 02-07 11:30 → N.3E 02-08 11:05
PROVIDERS: ADMIT Surgery; ATTEND Surgery

== ENCOUNTER 2019-03-10 22:46 | Inpatient (IN) ==
[2019-03-10] MEDS ORDERED: ONDANSETRON 4 MG/2 ML VIAL IV STA (23:24)
[2019-03-11 00:03] LABS: Albumin 3.8 G/DL (3.4-5.0); Calcium 9.9 MG/DL (8.5-10.1); Osmolality,Calculated 285.8 MOS/KG (273-304); Total Protein 9.4 G/DL (6.4-8.3)
[2019-03-11 00:49] LABS: Hematocrit 41.5 VOL% (42.0-52.0); Hemoglobin 13.7 GM/DL (14.0-18.0); Immature Granulocytes % 0.7 %; Immature Granulocytes Absolute 0.03 #; Lymphocytes # 0.3 10*3/uL (1.4-4.0); Lymphocytes % 7.1 % (21.2-54.2); Mean Corpuscular Volume 87.9 FL (87-102); Monocytes % 7.3 % (1.7-12.7); Neutrophils % 84.9 % (38.7-73.9); Red Blood Count 4.72 MC/CUMM (3.8-5.5); White Blood Count 4.2 T/CUMM (4-12)
[2019-03-11 00:51] LABS: Platelet Count 140 T/CUMM (130-400)
[2019-03-11 00:59] LABS: Apearance,Urine Slightly Hazy (Clear); Bacteria,Urine Occasional /HPF (Few); Bilirubin,Urine Negative (Negative); Blood, Urine Negative (Negative); Glucose,Urine (UA) Negative (Negative); Hyaline Casts,Urine 74 /LPF (0-3); Ketones,Urine Negative (Negative); Mucus,Urine Occasional /LPF (Occasional); Nitrite,Urine Negative (Negative); Protein,Urine Negative; RBC,Urine 2 /HPF (0-4); Urine Color Amber (Yellow); Urine Specific Gravity 1.016 (1.001-1.035); Urine Urobilinogen < 2.0 EU/DL (0.2-1.0); WBC,Urine 1 /HPF (0-6)
[2019-03-11] MEDS ORDERED: PIPERACILLIN/TAZOBACTAM 3,375 MG in SODIUM CHLORIDE 0.9% 100 ML IV STA (00:59)
[2019-03-11] MEDS ORDERED: SODIUM CHLORIDE 0.9% 1,000 ML IV STA (01:11)
[2019-03-11] MEDS ORDERED: ONDANSETRON 4 MG/2 ML VIAL IV PRN (01:17)
[2019-03-11 01:18] LABS: Band Neutrophils 18 % (0-10); Lymphocytes 7 % (20-55); Metamyelocytes 4 %; Segmented Neutrophils 62 % (50-85); Total Cells Counted 100
[2019-03-11 01:19] LABS: Hypochromasia 1+; Platelet Estimate Normal; Polychromasia Few
[2019-03-11] MEDS ORDERED: DEXTROSE 5% NACL 0.45% 1,000 ML IV SCH (01:30)
[2019-03-11] MEDS ORDERED: LACTATED RINGERS 1,000 ML IV ONE ×3 (03:16→09:37)
[2019-03-11] MEDS ORDERED: INFLUENZA VIRUS VACCINE 0.5 ML SYRINGE IM ONE (03:37)
[2019-03-11 04:43] LABS: Hematocrit 34.9 VOL% (42.0-52.0); Hemoglobin 11.2 GM/DL (14.0-18.0); Immature Granulocytes % 0.4 %; Immature Granulocytes Absolute 0.02 #; Lymphocytes # 0.3 10*3/uL (1.4-4.0); Lymphocytes % 6.7 % (21.2-54.2); Mean Corpuscular HGB Conc 32.1 GM/DL (32-36); Mean Corpuscular Volume 87.9 FL (87-102); Monocytes % 13.5 % (1.7-12.7); Neutrophils % 79.4 % (38.7-73.9); Platelet Count 118 T/CUMM (130-400); Red Blood Count 3.97 MC/CUMM (3.8-5.5); White Blood Count 4.6 T/CUMM (4-12)
[2019-03-11] MEDS: DEXTROSE 5% LACTATED RINGERS 1,000 ML IV SCH ×3 (04:50→21:13)
[2019-03-11 05:04] LABS: Band Neutrophils 8 % (0-10); Hypochromasia 1+; Lymphocytes 7 % (20-55); Platelet Estimate Decreased; Segmented Neutrophils 71 % (50-85); Total Cells Counted 100
[2019-03-11 05:15] LABS: Bilirubin,Total 1.6 MG/DL (0.2-1.0); Calcium 9.2 MG/DL (8.5-10.1); Osmolality,Calculated 290.4 MOS/KG (273-304); Total Protein 7.4 G/DL (6.4-8.3)
[2019-03-11 08:03] LABS: Bilirubin,Urine Negative (Negative); Blood, Urine Negative (Negative); Glucose,Urine (UA) Negative (Negative); Hyaline Casts,Urine 11 /LPF (0-3); Ketones,Urine Negative (Negative); Mucus,Urine Occasional /LPF (Occasional); Nitrite,Urine Negative (Negative); Protein,Urine Negative; RBC,Urine <1 /HPF (0-4); Urine Color Yellow (Yellow); Urine Specific Gravity 1.014 (1.001-1.035); Urine Urobilinogen < 2.0 EU/DL (0.2-1.0); WBC,Urine 1 /HPF (0-6)
[2019-03-11 08:04] LABS: Apearance,Urine Clear (Clear)
[2019-03-11] MEDS: PANTOPRAZOLE 40 MG VIAL IV SCH (08:42)
[2019-03-11] MEDS ORDERED: ALBUTEROL/IPRATROPIUM 3 ML NEB RESP TX PRN (08:54)
[2019-03-11] MEDS: methylPREDNISolone SOD SUC 40 MG/1 ML VIAL IV SCH ×2 (09:32→21:26)
[2019-03-11] MEDS: PIPERACILLIN/TAZOBACTAM 3,375 MG in SODIUM CHLORIDE 0.9% 100 ML IV SCH ×2 (09:43→17:32)
[2019-03-11] MEDS: ALBUTEROL/IPRATROPIUM 3 ML NEB RESP TX PRN (09:48)
[2019-03-11] MEDS ORDERED: GLUCAGON 1 MG VIAL IM PRN (10:09)
[2019-03-11] MEDS ORDERED: DEXTROSE 10% 1,000 ML BAG IV PRN (10:09)
[2019-03-11] MEDS: LINEZOLID INJ 600 MG in PREMIX 1 EACH IV SCH ×2 (10:40→21:42)
[2019-03-11] MEDS ORDERED: ALBUTEROL/IPRATROPIUM 3 ML NEB RESP TX SCH (11:00)
[2019-03-11] MEDS: INSULIN LISPRO 100 UNIT/ML SUBCUT SCH ×2 (11:30→17:34)
[2019-03-11] MEDS: ALBUTEROL/IPRATROPIUM 3 ML NEB RESP TX SCH ×3 (12:53→20:36)
[2019-03-12] MEDS: INSULIN LISPRO 100 UNIT/ML SUBCUT SCH ×4 (00:34→19:29)
[2019-03-12] MEDS: DEXTROSE 5% LACTATED RINGERS 1,000 ML IV SCH ×2 (00:35→19:26)
[2019-03-12] MEDS: PIPERACILLIN/TAZOBACTAM 3,375 MG in SODIUM CHLORIDE 0.9% 100 ML IV SCH ×3 (02:17→17:40)
[2019-03-12 05:09] LABS: Hematocrit 32.7 VOL% (42.0-52.0); Hemoglobin 10.5 GM/DL (14.0-18.0); Immature Granulocytes % 0.8 %; Immature Granulocytes Absolute 0.06 #; Lymphocytes # 0.3 10*3/uL (1.4-4.0); Lymphocytes % 3.9 % (21.2-54.2); Mean Corpuscular HGB Conc 32.1 GM/DL (32-36); Mean Corpuscular Volume 88.9 FL (87-102); Monocytes % 6.8 % (1.7-12.7); Neutrophils % 88.5 % (38.7-73.9); Platelet Count 108 T/CUMM (130-400); Red Blood Count 3.68 MC/CUMM (3.8-5.5); Red Cell Distribution Width 15.9 % (9.3-17.3); White Blood Count 7.7 T/CUMM (4-12)
[2019-03-12 05:24] LABS: Albumin 2.5 G/DL (3.4-5.0); Bilirubin,Total 0.7 MG/DL (0.2-1.0); Calcium 8.8 MG/DL (8.5-10.1); Total Protein 7.2 G/DL (6.4-8.3)
[2019-03-12 05:35] LABS: Band Neutrophils 4 % (0-10); Lymphocytes 5 % (20-55); Platelet Estimate Decreased; Segmented Neutrophils 81 % (50-85); Total Cells Counted 100
[2019-03-12 05:36] LABS: Polychromasia Few
[2019-03-12] MEDS: ALBUTEROL/IPRATROPIUM 3 ML NEB RESP TX SCH ×4 (07:40→19:27)
[2019-03-12] MEDS: FLUCONAZOLE INJ 100 MG in IV BAG 1 EACH IV SCH (09:28)
[2019-03-12] MEDS: PANTOPRAZOLE 40 MG VIAL IV SCH (09:28)
[2019-03-12] MEDS: LINEZOLID INJ 600 MG in PREMIX 1 EACH IV SCH ×2 (10:30→23:12)
[2019-03-12] MEDS ORDERED: DOCUSATE SODIUM 100 MG CAPSULE PO PRN (14:05)
[2019-03-12] MEDS: PEG HYPROMELLOSE GLYCERIN BOTH EYES SCH ×2 (19:28→21:08)
[2019-03-12] MEDS: PANTOPRAZOLE 40 MG TABLET PO SCH (19:28)
[2019-03-12] MEDS: carvediloL 6.25 MG TABLET PO SCH (19:28)
[2019-03-12] MEDS: ALLOPURINOL 300 MG TABLET PO SCH (19:28)
[2019-03-12] MEDS: LORATADINE 10 MG TABLET PO SCH (19:28)
[2019-03-13] MEDS: PIPERACILLIN/TAZOBACTAM 3,375 MG in SODIUM CHLORIDE 0.9% 100 ML IV SCH ×3 (02:42→17:50)
[2019-03-13 05:19] LABS: Eosinophils % 0.1 % (0.00-10.9); Hematocrit 34.4 VOL% (42.0-52.0); Hemoglobin 10.8 GM/DL (14.0-18.0); Immature Granulocytes % 0.9 %; Immature Granulocytes Absolute 0.07 #; Lymphocytes # 0.4 10*3/uL (1.4-4.0); Lymphocytes % 4.8 % (21.2-54.2); Mean Corpuscular HGB Conc 31.4 GM/DL (32-36); Mean Corpuscular Volume 89.4 FL (87-102); Monocytes % 7.9 % (1.7-12.7); Neutrophils % 86.3 % (38.7-73.9); Platelet Count 130 T/CUMM (130-400); Red Blood Count 3.85 MC/CUMM (3.8-5.5); Red Cell Distribution Width 15.9 % (9.3-17.3); White Blood Count 7.7 T/CUMM (4-12)
[2019-03-13 05:35] LABS: Albumin 2.5 G/DL (3.4-5.0); Bilirubin,Total 0.7 MG/DL (0.2-1.0); Calcium 8.8 MG/DL (8.5-10.1); Osmolality,Calculated 292.6 MOS/KG (273-304); Total Protein 7.3 G/DL (6.4-8.3)
[2019-03-13 06:03] LABS: Eosinophils 1 % (0-10); Segmented Neutrophils 95 % (50-85); Total Cells Counted 100
[2019-03-13 06:04] LABS: Platelet Estimate Normal; Polychromasia Few
[2019-03-13] MEDS: ALBUTEROL/IPRATROPIUM 3 ML NEB RESP TX SCH ×4 (07:24→19:50)
[2019-03-13] MEDS: ENOXAPARIN 40 MG/0.4 ML SYRINGE SUBCUT SCH (07:56)
[2019-03-13] MEDS: INSULIN LISPRO 100 UNIT/ML SUBCUT SCH ×4 (08:10→18:17)
[2019-03-13] MEDS: DEXTROSE 5% LACTATED RINGERS 1,000 ML IV SCH ×2 (08:11→09:22)
[2019-03-13] MEDS: FLUCONAZOLE INJ 100 MG in IV BAG 1 EACH IV SCH (09:22)
[2019-03-13] MEDS: ALLOPURINOL 300 MG TABLET PO SCH (09:23)
[2019-03-13] MEDS: carvediloL 6.25 MG TABLET PO SCH (09:23)
[2019-03-13] MEDS: LORATADINE 10 MG TABLET PO SCH (09:23)
[2019-03-13] MEDS: PEG HYPROMELLOSE GLYCERIN BOTH EYES SCH ×2 (09:26→20:54)
[2019-03-13] MEDS: PANTOPRAZOLE 40 MG TABLET PO SCH (09:35)
[2019-03-13] MEDS: METOPROLOL TARTRATE 5 MG/5 ML VIAL IV PRN (10:58)
[2019-03-13] MEDS: NYSTATIN 500,000 UNIT/5 ML UDCUP SWISH/SWAL SCH ×3 (14:10→20:53)
[2019-03-13] MEDS: LINEZOLID INJ 600 MG in PREMIX 1 EACH IV SCH ×2 (14:10→22:07)
[2019-03-13] MEDS: cloNIDine 0.1 MG TABLET PO PRN (17:16)
[2019-03-14] MEDS: INSULIN LISPRO 100 UNIT/ML SUBCUT SCH ×4 (01:48→17:52)
[2019-03-14] MEDS: PIPERACILLIN/TAZOBACTAM 3,375 MG in SODIUM CHLORIDE 0.9% 100 ML IV SCH ×3 (02:10→17:52)
[2019-03-14] MEDS: POTASSIUM CHLORIDE 20 MEQ/15 ML UDCUP PER TUBE PRN ×3 (02:12→09:07)
[2019-03-14 05:09] LABS: Eosinophils # 0.1 10*3/uL (0.0-0.87); Eosinophils % 1.1 % (0.00-10.9); Hematocrit 33.8 VOL% (42.0-52.0); Hemoglobin 10.8 GM/DL (14.0-18.0); Immature Granulocytes % 0.8 %; Immature Granulocytes Absolute 0.06 #; Lymphocytes # 0.4 10*3/uL (1.4-4.0); Lymphocytes % 4.8 % (21.2-54.2); Mean Corpuscular Volume 89.2 FL (87-102); Mean Platelet Volume 12.9 FL (9.6-12.0); Monocytes % 10.5 % (1.7-12.7); Neutrophils % 82.8 % (38.7-73.9); Platelet Count 162 T/CUMM (130-400); Red Blood Count 3.79 MC/CUMM (3.8-5.5); Red Cell Distribution Width 16.1 % (9.3-17.3); White Blood Count 7.5 T/CUMM (4-12)
[2019-03-14 05:36] LABS: Hypochromasia 1+; Lymphocytes 8 % (20-55); Ovalocytes Slight; Platelet Estimate Adequate; Segmented Neutrophils 83 % (50-85); Total Cells Counted 100
[2019-03-14 05:37] LABS: Albumin 2.4 G/DL (3.4-5.0); Bilirubin,Total 0.8 MG/DL (0.2-1.0); Calcium 8.8 MG/DL (8.5-10.1); Total Protein 7.3 G/DL (6.4-8.3)
[2019-03-14 05:38] LABS: Calcium 8.8 MG/DL (8.5-10.1); Osmolality,Calculated 288.8 MOS/KG (273-304); Prealbumin 11.3 MG/DL (20-40)
[2019-03-14] MEDS: DEXTROSE 5% LACTATED RINGERS 1,000 ML IV SCH (07:46)
[2019-03-14] MEDS: ALBUTEROL/IPRATROPIUM 3 ML NEB RESP TX SCH ×4 (07:56→19:21)
[2019-03-14] MEDS: NYSTATIN 500,000 UNIT/5 ML UDCUP SWISH/SWAL SCH ×4 (09:08→20:32)
[2019-03-14] MEDS: ALLOPURINOL 300 MG TABLET PO SCH (09:08)
[2019-03-14] MEDS: LORATADINE 10 MG TABLET PO SCH (09:08)
[2019-03-14] MEDS: PANTOPRAZOLE 40 MG TABLET PO SCH (09:08)
[2019-03-14] MEDS: LEVOFLOXACIN 750 MG TABLET PO SCH (09:08)
[2019-03-14] MEDS: carvediloL 6.25 MG TABLET PO SCH (09:08)
[2019-03-14] MEDS: PEG HYPROMELLOSE GLYCERIN BOTH EYES SCH ×2 (09:12→20:32)
[2019-03-14] MEDS: ENOXAPARIN 40 MG/0.4 ML SYRINGE SUBCUT SCH (09:12)
[2019-03-15] MEDS: INSULIN LISPRO 100 UNIT/ML SUBCUT SCH ×4 (01:44→18:26)
[2019-03-15] MEDS: PIPERACILLIN/TAZOBACTAM 3,375 MG in SODIUM CHLORIDE 0.9% 100 ML IV SCH ×3 (01:50→22:45)
[2019-03-15] MEDS: METOPROLOL TARTRATE 5 MG/5 ML VIAL IV PRN (01:51)
[2019-03-15] MEDS: ALBUTEROL/IPRATROPIUM 3 ML NEB RESP TX PRN (06:25)
[2019-03-15] MEDS: ALBUTEROL/IPRATROPIUM 3 ML NEB RESP TX SCH ×4 (07:55→19:23)
[2019-03-15] MEDS: LORATADINE 10 MG TABLET PO SCH (09:11)
[2019-03-15] MEDS: PANTOPRAZOLE 40 MG TABLET PO SCH (09:12)
[2019-03-15] MEDS: ENOXAPARIN 40 MG/0.4 ML SYRINGE SUBCUT SCH (09:12)
[2019-03-15] MEDS: ALLOPURINOL 300 MG TABLET PO SCH (09:12)
[2019-03-15] MEDS: carvediloL 6.25 MG TABLET PO SCH (09:12)
[2019-03-15] MEDS: NYSTATIN 500,000 UNIT/5 ML UDCUP SWISH/SWAL SCH ×4 (09:12→20:46)
[2019-03-15] MEDS: LEVOFLOXACIN 750 MG TABLET PO SCH (09:12)
[2019-03-15] MEDS: PEG HYPROMELLOSE GLYCERIN BOTH EYES SCH ×2 (09:14→20:47)
[2019-03-15] MEDS: cloNIDine 0.1 MG TABLET PO PRN (20:52)
[2019-03-16] MEDS: INSULIN LISPRO 100 UNIT/ML SUBCUT SCH ×4 (01:10→19:20)
[2019-03-16] MEDS: ALBUTEROL/IPRATROPIUM 3 ML NEB RESP TX SCH ×4 (07:39→20:33)
[2019-03-16] MEDS: LEVOFLOXACIN 750 MG TABLET PO SCH (09:00)
[2019-03-16] MEDS: NYSTATIN 500,000 UNIT/5 ML UDCUP SWISH/SWAL SCH ×4 (09:45→20:22)
[2019-03-16] MEDS: PANTOPRAZOLE 40 MG TABLET PO SCH (09:45)
[2019-03-16] MEDS: ENOXAPARIN 40 MG/0.4 ML SYRINGE SUBCUT SCH (09:45)
[2019-03-16] MEDS: ALLOPURINOL 300 MG TABLET PO SCH (09:45)
[2019-03-16] MEDS: LORATADINE 10 MG TABLET PO SCH (09:45)
[2019-03-16] MEDS: carvediloL 6.25 MG TABLET PO SCH (09:45)
[2019-03-16] MEDS: PIPERACILLIN/TAZOBACTAM 3,375 MG in SODIUM CHLORIDE 0.9% 100 ML IV SCH ×2 (09:46→17:14)
[2019-03-16] MEDS: PEG HYPROMELLOSE GLYCERIN BOTH EYES SCH ×2 (11:03→20:25)
[2019-03-16] MEDS: METOPROLOL TARTRATE 5 MG/5 ML VIAL IV PRN (20:22)
[2019-03-17] MEDS: PIPERACILLIN/TAZOBACTAM 3,375 MG in SODIUM CHLORIDE 0.9% 100 ML IV SCH ×3 (00:17→14:51)
[2019-03-17] MEDS: INSULIN LISPRO 100 UNIT/ML SUBCUT SCH ×4 (00:19→17:46)
[2019-03-17] MEDS: cloNIDine 0.1 MG TABLET PO PRN (04:41)
[2019-03-17 05:18] LABS: Basophils % 0.1 % (0.0-0.8); Eosinophils # 0.1 10*3/uL (0.0-0.87); Eosinophils % 1.9 % (0.00-10.9); Hematocrit 32.4 VOL% (42.0-52.0); Immature Granulocytes % 1.9 %; Immature Granulocytes Absolute 0.13 #; Lymphocytes # 0.5 10*3/uL (1.4-4.0); Lymphocytes % 6.7 % (21.2-54.2); Mean Corpuscular HGB Conc 30.9 GM/DL (32-36); Mean Corpuscular Volume 88.8 FL (87-102); Mean Platelet Volume 12.4 FL (9.6-12.0); Monocytes % 11.6 % (1.7-12.7); Neutrophils % 77.8 % (38.7-73.9); Platelet Count 192 T/CUMM (130-400); Red Blood Count 3.65 MC/CUMM (3.8-5.5); White Blood Count 6.7 T/CUMM (4-12)
[2019-03-17 05:48] LABS: Bilirubin,Total 0.7 MG/DL (0.2-1.0); Calcium 8.5 MG/DL (8.5-10.1); Osmolality,Calculated 287.8 MOS/KG (273-304); Total Protein 7.4 G/DL (6.4-8.3)
[2019-03-17] MEDS: ALBUTEROL/IPRATROPIUM 3 ML NEB RESP TX SCH ×4 (07:18→19:58)
[2019-03-17] MEDS: ENOXAPARIN 40 MG/0.4 ML SYRINGE SUBCUT SCH (08:47)
[2019-03-17] MEDS: LACTATED RINGERS 1,000 ML IV SCH (08:58)
[2019-03-17] MEDS: NYSTATIN 500,000 UNIT/5 ML UDCUP SWISH/SWAL SCH ×4 (14:38→21:10)
[2019-03-17] MEDS: carvediloL 6.25 MG TABLET PO SCH (14:38)
[2019-03-17] MEDS: LORATADINE 10 MG TABLET PO SCH (14:38)
[2019-03-17] MEDS: LEVOFLOXACIN 750 MG TABLET PO SCH (14:38)
[2019-03-17] MEDS: PANTOPRAZOLE 40 MG TABLET PO SCH (14:38)
[2019-03-17] MEDS: ALLOPURINOL 300 MG TABLET PO SCH (14:38)
[2019-03-17] MEDS: POTASSIUM CHLORIDE 20 MEQ/15 ML UDCUP PER TUBE PRN ×3 (14:38→18:29)
[2019-03-17] MEDS: PEG HYPROMELLOSE GLYCERIN BOTH EYES SCH ×2 (14:39→21:12)
[2019-03-18] MEDS: PIPERACILLIN/TAZOBACTAM 3,375 MG in SODIUM CHLORIDE 0.9% 100 ML IV SCH ×3 (00:10→15:05)
[2019-03-18] MEDS: INSULIN LISPRO 100 UNIT/ML SUBCUT SCH ×4 (00:28→18:09)
[2019-03-18 03:02] LABS: Basophils % 0.2 % (0.0-0.8); Calcium 8.8 MG/DL (8.5-10.1); Eosinophils # 0.2 10*3/uL (0.0-0.87); Eosinophils % 3.5 % (0.00-10.9); Hematocrit 32.7 VOL% (42.0-52.0); Hemoglobin 10.4 GM/DL (14.0-18.0); Immature Granulocytes % 1.7 %; Immature Granulocytes Absolute 0.09 #; Lymphocytes # 0.4 10*3/uL (1.4-4.0); Lymphocytes % 7.1 % (21.2-54.2); Mean Corpuscular HGB Conc 31.8 GM/DL (32-36); Mean Corpuscular Volume 89.3 FL (87-102); Mean Platelet Volume 12.2 FL (9.6-12.0); Monocytes % 8.9 % (1.7-12.7); Neutrophils % 78.6 % (38.7-73.9); Platelet Count 209 T/CUMM (130-400); Red Blood Count 3.66 MC/CUMM (3.8-5.5); White Blood Count 5.4 T/CUMM (4-12)
[2019-03-18] MEDS: ENOXAPARIN 40 MG/0.4 ML SYRINGE SUBCUT SCH (07:55)
[2019-03-18] MEDS: ALBUTEROL/IPRATROPIUM 3 ML NEB RESP TX SCH ×4 (08:19→21:10)
[2019-03-18] MEDS: ALLOPURINOL 300 MG TABLET PO SCH (09:14)
[2019-03-18] MEDS: carvediloL 6.25 MG TABLET PO SCH (09:14)
[2019-03-18] MEDS: LORATADINE 10 MG TABLET PO SCH (09:14)
[2019-03-18] MEDS: LEVOFLOXACIN 750 MG TABLET PO SCH (09:14)
[2019-03-18] MEDS: NYSTATIN 500,000 UNIT/5 ML UDCUP SWISH/SWAL SCH ×4 (09:15→20:43)
[2019-03-18] MEDS: PANTOPRAZOLE 40 MG TABLET PO SCH (09:15)
[2019-03-18] MEDS ORDERED: FUROSEMIDE 40 MG/4 ML VIAL IV ONE (09:26)
[2019-03-18] MEDS: LACTATED RINGERS 1,000 ML IV SCH (09:31)
[2019-03-18] MEDS: PEG HYPROMELLOSE GLYCERIN BOTH EYES SCH ×2 (09:31→20:43)
[2019-03-18] MEDS: METOPROLOL TARTRATE 5 MG/5 ML VIAL IV PRN (20:43)
[2019-03-19] MEDS: INSULIN LISPRO 100 UNIT/ML SUBCUT SCH ×4 (00:14→17:44)
[2019-03-19] MEDS: PIPERACILLIN/TAZOBACTAM 3,375 MG in SODIUM CHLORIDE 0.9% 100 ML IV SCH ×4 (00:15→23:55)
[2019-03-19 06:07] LABS: Basophils % 0.2 % (0.0-0.8); Eosinophils # 0.2 10*3/uL (0.0-0.87); Eosinophils % 2.5 % (0.00-10.9); Hematocrit 32.8 VOL% (42.0-52.0); Hemoglobin 10.5 GM/DL (14.0-18.0); Immature Granulocytes % 1.5 %; Immature Granulocytes Absolute 0.09 #; Lymphocytes # 0.5 10*3/uL (1.4-4.0); Lymphocytes % 7.9 % (21.2-54.2); Mean Corpuscular Volume 87.5 FL (87-102); Mean Platelet Volume 12.5 FL (9.6-12.0); Neutrophils % 80.9 % (38.7-73.9); Platelet Count 265 T/CUMM (130-400); Red Blood Count 3.75 MC/CUMM (3.8-5.5); Red Cell Distribution Width 15.9 % (9.3-17.3)
[2019-03-19 06:25] LABS: Calcium 8.4 MG/DL (8.5-10.1); Osmolality,Calculated 283.1 MOS/KG (273-304)
[2019-03-19] MEDS: ALBUTEROL/IPRATROPIUM 3 ML NEB RESP TX SCH ×4 (08:15→20:56)
[2019-03-19] MEDS: ENOXAPARIN 40 MG/0.4 ML SYRINGE SUBCUT SCH (09:36)
[2019-03-19] MEDS: LORATADINE 10 MG TABLET PO SCH (09:38)
[2019-03-19] MEDS: PANTOPRAZOLE 40 MG TABLET PO SCH (09:38)
[2019-03-19] MEDS: LEVOFLOXACIN 750 MG TABLET PO SCH (09:38)
[2019-03-19] MEDS: carvediloL 6.25 MG TABLET PO SCH (09:38)
[2019-03-19] MEDS: NYSTATIN 500,000 UNIT/5 ML UDCUP SWISH/SWAL SCH ×4 (09:38→20:54)
[2019-03-19] MEDS: ALLOPURINOL 300 MG TABLET PO SCH (09:38)
[2019-03-19] MEDS: LACTATED RINGERS 1,000 ML IV SCH (09:39)
[2019-03-19] MEDS: PEG HYPROMELLOSE GLYCERIN BOTH EYES SCH ×2 (09:41→20:54)
[2019-03-20] MEDS: INSULIN LISPRO 100 UNIT/ML SUBCUT SCH ×4 (01:43→20:38)
[2019-03-20] MEDS ORDERED: PROMETHAZINE 25 MG/1 ML VIAL IM ONE (07:00)
[2019-03-20] MEDS ORDERED: MEPERIDINE 50 MG/1 ML VIAL IM ONE (07:00)
[2019-03-20] MEDS ORDERED: MIDAZOLAM 2 MG/2 ML VIAL ONE (07:13)
[2019-03-20] MEDS ORDERED: LIDOCAINE 2% 20 ML VIAL RESP TX ONE (07:30)
[2019-03-20] MEDS ORDERED: MIDAZOLAM 2 MG/2 ML VIAL IV ONE (07:30)
[2019-03-20] MEDS ORDERED: LIDOCAINE 2% VISCOUS 100 ML BOTTLE SWISH/SPIT ONE (07:30)
[2019-03-20] MEDS ORDERED: LIDOCAINE 1% 20 ML VIAL MISC INJ ONE (07:30)
[2019-03-20] MEDS: ALBUTEROL/IPRATROPIUM 3 ML NEB RESP TX SCH ×4 (07:59→20:38)
[2019-03-20] MEDS: PIPERACILLIN/TAZOBACTAM 3,375 MG in SODIUM CHLORIDE 0.9% 100 ML IV SCH (10:28)
[2019-03-20] MEDS: LEVOFLOXACIN 750 MG TABLET PO SCH (10:29)
[2019-03-20] MEDS: LORATADINE 10 MG TABLET PO SCH (10:29)
[2019-03-20] MEDS: ALLOPURINOL 300 MG TABLET PO SCH (10:29)
[2019-03-20] MEDS: carvediloL 6.25 MG TABLET PO SCH (10:29)
[2019-03-20] MEDS: PANTOPRAZOLE 40 MG TABLET PO SCH (10:29)
[2019-03-20] MEDS: ENOXAPARIN 40 MG/0.4 ML SYRINGE SUBCUT SCH (10:30)
[2019-03-20] MEDS: NYSTATIN 500,000 UNIT/5 ML UDCUP SWISH/SWAL SCH ×4 (10:30→22:10)
[2019-03-20] MEDS: PEG HYPROMELLOSE GLYCERIN BOTH EYES SCH ×2 (10:30→22:10)
[2019-03-20] MEDS: LACTATED RINGERS 1,000 ML IV SCH (10:31)
[2019-03-21] MEDS: INSULIN LISPRO 100 UNIT/ML SUBCUT SCH ×4 (00:07→17:49)
[2019-03-21 04:54] LABS: Basophils % 0.2 % (0.0-0.8); Eosinophils # 0.1 10*3/uL (0.0-0.87); Eosinophils % 1.7 % (0.00-10.9); Hematocrit 32.9 VOL% (42.0-52.0); Hemoglobin 10.6 GM/DL (14.0-18.0); Immature Granulocytes % 0.9 %; Immature Granulocytes Absolute 0.05 #; Lymphocytes # 0.4 10*3/uL (1.4-4.0); Lymphocytes % 7.6 % (21.2-54.2); Mean Corpuscular HGB Conc 32.2 GM/DL (32-36); Mean Corpuscular Volume 86.1 FL (87-102); Mean Platelet Volume 11.4 FL (9.6-12.0); Monocytes % 7.1 % (1.7-12.7); Neutrophils % 82.5 % (38.7-73.9); Platelet Count 306 T/CUMM (130-400); Red Blood Count 3.82 MC/CUMM (3.8-5.5); White Blood Count 5.8 T/CUMM (4-12)
[2019-03-21 05:15] LABS: Calcium 8.5 MG/DL (8.5-10.1); Osmolality,Calculated 278.5 MOS/KG (273-304)
[2019-03-21] MEDS: ALBUTEROL/IPRATROPIUM 3 ML NEB RESP TX SCH ×4 (07:06→19:36)
[2019-03-21] MEDS: LORATADINE 10 MG TABLET PO SCH (08:54)
[2019-03-21] MEDS: ENOXAPARIN 40 MG/0.4 ML SYRINGE SUBCUT SCH (08:54)
[2019-03-21] MEDS: ALLOPURINOL 300 MG TABLET PO SCH (08:54)
[2019-03-21] MEDS: NYSTATIN 500,000 UNIT/5 ML UDCUP SWISH/SWAL SCH ×3 (08:54→21:48)
[2019-03-21] MEDS: LEVOFLOXACIN 750 MG TABLET PO SCH (08:54)
[2019-03-21] MEDS: PANTOPRAZOLE 40 MG TABLET PO SCH (08:54)
[2019-03-21] MEDS: carvediloL 6.25 MG TABLET PO SCH (08:54)
[2019-03-21] MEDS: PEG HYPROMELLOSE GLYCERIN BOTH EYES SCH ×2 (08:55→21:49)
[2019-03-21] MEDS ORDERED: FUROSEMIDE 40 MG/4 ML VIAL IV ONE (09:24)
[2019-03-21] MEDS: LACTATED RINGERS 1,000 ML IV SCH (12:17)
[2019-03-22] MEDS: INSULIN LISPRO 100 UNIT/ML SUBCUT SCH ×4 (01:05→19:09)
[2019-03-22] MEDS: ALBUTEROL/IPRATROPIUM 3 ML NEB RESP TX SCH ×4 (07:20→19:55)
[2019-03-22] MEDS: PEG HYPROMELLOSE GLYCERIN BOTH EYES SCH ×2 (08:52→20:39)
[2019-03-22] MEDS: NYSTATIN 500,000 UNIT/5 ML UDCUP SWISH/SWAL SCH ×4 (08:52→20:37)
[2019-03-22] MEDS: PANTOPRAZOLE 40 MG TABLET PO SCH (08:52)
[2019-03-22] MEDS: LEVOFLOXACIN 750 MG TABLET PO SCH (08:52)
[2019-03-22] MEDS: LORATADINE 10 MG TABLET PO SCH (08:52)
[2019-03-22] MEDS: ENOXAPARIN 40 MG/0.4 ML SYRINGE SUBCUT SCH (08:52)
[2019-03-22] MEDS: ALLOPURINOL 300 MG TABLET PO SCH (08:52)
[2019-03-22] MEDS: carvediloL 6.25 MG TABLET PO SCH (08:52)
[2019-03-22] MEDS: FLUCONAZOLE INJ 100 MG in IV BAG 1 EACH IV SCH (12:13)
[2019-03-22] MEDS ORDERED: VANCOMYCIN INJ 1,250 MG in SODIUM CHLORIDE 0.9% 250 ML IV SCH (16:00)
[2019-03-22] MEDS: VANCOMYCIN INJ 1,250 MG in SODIUM CHLORIDE 0.9% 250 ML IV SCH (18:06)
[2019-03-23] MEDS: INSULIN LISPRO 100 UNIT/ML SUBCUT SCH ×4 (01:07→17:50)
[2019-03-23] MEDS: VANCOMYCIN INJ 1,250 MG in SODIUM CHLORIDE 0.9% 250 ML IV SCH ×2 (04:12→17:36)
[2019-03-23] MEDS: ALBUTEROL/IPRATROPIUM 3 ML NEB RESP TX SCH ×4 (05:10→20:10)
[2019-03-23] MEDS: carvediloL 6.25 MG TABLET PO SCH (09:21)
[2019-03-23] MEDS: PANTOPRAZOLE 40 MG TABLET PO SCH (09:21)
[2019-03-23] MEDS: LORATADINE 10 MG TABLET PO SCH (09:22)
[2019-03-23] MEDS: PEG HYPROMELLOSE GLYCERIN BOTH EYES SCH ×2 (09:22→21:18)
[2019-03-23] MEDS: NYSTATIN 500,000 UNIT/5 ML UDCUP SWISH/SWAL SCH ×4 (09:22→20:46)
[2019-03-23] MEDS: ALLOPURINOL 300 MG TABLET PO SCH (09:22)
[2019-03-23] MEDS: ENOXAPARIN 40 MG/0.4 ML SYRINGE SUBCUT SCH (09:22)
[2019-03-23] MEDS: FLUCONAZOLE INJ 100 MG in IV BAG 1 EACH IV SCH (12:30)
[2019-03-23] MEDS: SULFAMETHOX/TRIMETHOPRIM 800-160 MG TABLET PO SCH (20:46)
[2019-03-24] MEDS: INSULIN LISPRO 100 UNIT/ML SUBCUT SCH ×3 (01:45→12:23)
[2019-03-24] MEDS: VANCOMYCIN INJ 1,250 MG in SODIUM CHLORIDE 0.9% 250 ML IV SCH ×2 (04:25→17:52)
[2019-03-24 05:23] LABS: Basophils % 0.4 % (0.0-0.8); Eosinophils # 0.1 10*3/uL (0.0-0.87); Eosinophils % 2.1 % (0.00-10.9); Hematocrit 34.3 VOL% (42.0-52.0); Hemoglobin 11.2 GM/DL (14.0-18.0); Immature Granulocytes % 1.1 %; Immature Granulocytes Absolute 0.06 #; Lymphocytes # 0.5 10*3/uL (1.4-4.0); Lymphocytes % 9.1 % (21.2-54.2); Mean Corpuscular HGB Conc 32.7 GM/DL (32-36); Mean Corpuscular Volume 84.9 FL (87-102); Mean Platelet Volume 12.1 FL (9.6-12.0); Monocytes % 8.9 % (1.7-12.7); Neutrophils % 78.4 % (38.7-73.9); Platelet Count 410 T/CUMM (130-400); Red Blood Count 4.04 MC/CUMM (3.8-5.5); Red Cell Distribution Width 15.8 % (9.3-17.3); White Blood Count 5.6 T/CUMM (4-12)
[2019-03-24 05:45] LABS: Osmolality,Calculated 279.5 MOS/KG (273-304)
[2019-03-24] MEDS: ALBUTEROL/IPRATROPIUM 3 ML NEB RESP TX SCH ×3 (07:58→16:12)
[2019-03-24] MEDS: ENOXAPARIN 40 MG/0.4 ML SYRINGE SUBCUT SCH (09:50)
[2019-03-24] MEDS: NYSTATIN 500,000 UNIT/5 ML UDCUP SWISH/SWAL SCH ×3 (09:50→17:53)
[2019-03-24] MEDS: ALLOPURINOL 300 MG TABLET PO SCH (09:50)
[2019-03-24] MEDS: carvediloL 6.25 MG TABLET PO SCH (09:50)
[2019-03-24] MEDS: LORATADINE 10 MG TABLET PO SCH (09:50)
[2019-03-24] MEDS: PEG HYPROMELLOSE GLYCERIN BOTH EYES SCH (09:50)
[2019-03-24] MEDS: SULFAMETHOX/TRIMETHOPRIM 800-160 MG TABLET PO SCH (09:50)
[2019-03-24] MEDS: PANTOPRAZOLE 40 MG TABLET PO SCH (09:50)
[2019-03-24] MEDS: FLUCONAZOLE INJ 100 MG in IV BAG 1 EACH IV SCH (12:22)
[2019-03-24 17:10] VITALS: BP 103/70
== END 2019-03-24 18:22 | disposition home health service (06) | DRG 178 ==
LOC: EDBD → EDUNIT# → N.ED 22:46 → N.EDINP 03-11 01:14 → N.CC 03-11 02:09 → N.4E 03-12 13:53
PROVIDERS: ADMIT Student in an Organized Health Care Education/Training Program; ATTEND Internal Medicine

== ENCOUNTER 2019-03-24 21:19 | Observation (INO) ==
[2019-03-24] MEDS ORDERED: SODIUM CHLORIDE 0.9% 500 ML IV STA (21:37)
[2019-03-24 21:42] LABS: Basophils % 0.2 % (0.0-0.8); Eosinophils # 0.1 10*3/uL (0.0-0.87); Eosinophils % 1.2 % (0.00-10.9); Hematocrit 35.1 VOL% (42.0-52.0); Hemoglobin 11.5 GM/DL (14.0-18.0); Immature Granulocytes % 1.5 %; Immature Granulocytes Absolute 0.12 #; Lymphocytes # 0.6 10*3/uL (1.4-4.0); Lymphocytes % 7.2 % (21.2-54.2); Mean Corpuscular HGB Conc 32.8 GM/DL (32-36); Mean Corpuscular Volume 85.2 FL (87-102); Mean Platelet Volume 12.3 FL (9.6-12.0); Monocytes % 7.6 % (1.7-12.7); Neutrophils % 82.3 % (38.7-73.9); Platelet Count 420 T/CUMM (130-400); Red Blood Count 4.12 MC/CUMM (3.8-5.5); White Blood Count 8.2 T/CUMM (4-12)
[2019-03-24 22:05] LABS: Alanine Aminotransferase 38 U/L (16-61); Albumin 2.4 G/DL (3.4-5.0); Alkaline Phosphatase 82 U/L (45-117); Aspartate Amino Transferase 43 U/L (0-37); Bilirubin,Total < 0.39 MG/DL (0.2-1.0); Blood Urea Nitrogen 37 MG/DL (7-18); Calcium 8.9 MG/DL (8.5-10.1); Estimated Glom Filtration Rate 116 ML/MIN; Glucose 134 MG/DL (74-106); Total Protein 8.8 G/DL (6.4-8.3)
[2019-03-24] MEDS ORDERED: ACETAMINOPHEN 325 MG TABLET PO PRN (22:22)
[2019-03-24] MEDS ORDERED: ONDANSETRON 4 MG/2 ML VIAL IV PRN (22:22)
[2019-03-25 05:57] LABS: Calcium 8.7 MG/DL (8.5-10.1); Osmolality,Calculated 283.7 MOS/KG (273-304)
[2019-03-25] MEDS ORDERED: ALBUTEROL/IPRATROPIUM 3 ML NEB RESP TX PRN (08:45)
[2019-03-25] MEDS ORDERED: DOCUSATE SODIUM 100 MG CAPSULE PO PRN (08:45)
[2019-03-25] MEDS: ALLOPURINOL 300 MG TABLET PO SCH (09:44)
[2019-03-25] MEDS: DOCUSATE SODIUM 100 MG CAPSULE PO SCH ×2 (09:44→21:50)
[2019-03-25] MEDS: SULFAMETHOX/TRIMETHOPRIM 800-160 MG TABLET PO SCH ×2 (09:44→21:50)
[2019-03-25] MEDS: PANTOPRAZOLE 40 MG TABLET PO SCH (09:44)
[2019-03-25] MEDS: FLUCONAZOLE 100 MG TABLET PO SCH (09:45)
[2019-03-25] MEDS: carvediloL 6.25 MG TABLET PO SCH (09:45)
[2019-03-25] MEDS: LORATADINE 10 MG TABLET PO SCH (09:45)
[2019-03-25] MEDS: POLYVINYL ALCOHOL 1.4% OPH SOLN 15 ML BOTTLE BOTH EYES SCH ×2 (09:45→21:50)
[2019-03-25] MEDS: metFORMIN 500 MG TABLET PO SCH (09:45)
[2019-03-25] MEDS: IMMUNE GLOBULIN 10% 20 GM, IMMUNE GLOBULIN 10% 10 GM in PREMIX 1 EACH IV SCH (21:49)
[2019-03-26 06:19] LABS: Basophils % 0.5 % (0.0-0.8); Eosinophils # 0.1 10*3/uL (0.0-0.87); Eosinophils % 3.1 % (0.00-10.9); Hematocrit 33.8 VOL% (42.0-52.0); Immature Granulocytes % 1.7 %; Immature Granulocytes Absolute 0.07 #; Lymphocytes # 0.5 10*3/uL (1.4-4.0); Lymphocytes % 11.4 % (21.2-54.2); Mean Corpuscular HGB Conc 32.5 GM/DL (32-36); Mean Corpuscular Volume 84.5 FL (87-102); Mean Platelet Volume 11.9 FL (9.6-12.0); Monocytes % 13.8 % (1.7-12.7); Neutrophils % 69.5 % (38.7-73.9); Platelet Count 384 T/CUMM (130-400); Red Cell Distribution Width 15.9 % (9.3-17.3); White Blood Count 4.2 T/CUMM (4-12)
[2019-03-26 06:44] LABS: Calcium 8.8 MG/DL (8.5-10.1)
[2019-03-26] MEDS: POLYVINYL ALCOHOL 1.4% OPH SOLN 15 ML BOTTLE BOTH EYES SCH ×2 (09:54→20:57)
[2019-03-26] MEDS: ALLOPURINOL 300 MG TABLET PO SCH (09:54)
[2019-03-26] MEDS: SULFAMETHOX/TRIMETHOPRIM 800-160 MG TABLET PO SCH ×2 (09:54→20:56)
[2019-03-26] MEDS: FLUCONAZOLE 100 MG TABLET PO SCH (09:54)
[2019-03-26] MEDS: ENOXAPARIN 40 MG/0.4 ML SYRINGE SUBCUT SCH (09:55)
[2019-03-26] MEDS: carvediloL 6.25 MG TABLET PO SCH (09:55)
[2019-03-26] MEDS: PANTOPRAZOLE 40 MG TABLET PO SCH (09:55)
[2019-03-26] MEDS: DOCUSATE SODIUM 100 MG CAPSULE PO SCH ×2 (09:55→20:57)
[2019-03-26] MEDS: metFORMIN 500 MG TABLET PO SCH (09:55)
[2019-03-26] MEDS: LORATADINE 10 MG TABLET PO SCH (09:55)
[2019-03-26] MEDS: NYSTATIN 500,000 UNIT/5 ML UDCUP SWISH/SWAL SCH ×3 (10:39→20:56)
[2019-03-27] MEDS: IMMUNE GLOBULIN 10% 20 GM, IMMUNE GLOBULIN 10% 10 GM in PREMIX 1 EACH IV SCH ×2 (02:53→12:20)
[2019-03-27 05:52] LABS: Calcium 9.2 MG/DL (8.5-10.1); Osmolality,Calculated 270.5 MOS/KG (273-304); Prealbumin 18.9 MG/DL (20-40)
[2019-03-27] MEDS: NYSTATIN 500,000 UNIT/5 ML UDCUP SWISH/SWAL SCH ×2 (09:57→15:39)
[2019-03-27] MEDS: carvediloL 6.25 MG TABLET PO SCH (09:58)
[2019-03-27] MEDS: ENOXAPARIN 40 MG/0.4 ML SYRINGE SUBCUT SCH (09:58)
[2019-03-27] MEDS: metFORMIN 500 MG TABLET PO SCH (09:58)
[2019-03-27] MEDS: ALLOPURINOL 300 MG TABLET PO SCH (09:58)
[2019-03-27] MEDS: SULFAMETHOX/TRIMETHOPRIM 800-160 MG TABLET PO SCH (09:58)
[2019-03-27] MEDS: LORATADINE 10 MG TABLET PO SCH (09:58)
[2019-03-27] MEDS: DOCUSATE SODIUM 100 MG CAPSULE PO SCH (09:59)
[2019-03-27] MEDS: FLUCONAZOLE 100 MG TABLET PO SCH (09:59)
[2019-03-27] MEDS: PANTOPRAZOLE 40 MG TABLET PO SCH (09:59)
[2019-03-27] MEDS: POLYVINYL ALCOHOL 1.4% OPH SOLN 15 ML BOTTLE BOTH EYES SCH (11:28)
[2019-03-27 13:07] VITALS: BP 119/72
== END 2019-03-27 17:48 | disposition swing bed (61) ==
LOC: EDSEX → EDUNIT# → EDBD → N.EDINP 21:19 → N.ED 21:19 → N.5E 22:53
PROVIDERS: ADMIT Internal Medicine; ATTEND Internal Medicine